=== PATIENT | male | born 1940 | race Caucasian/White ===

== ENCOUNTER 2016-05-13 02:26 | Emergency (ER) | payer MEDICARE, BC ==
[2016-05-13 02:25] LABS: BASOPHIL# 0.1 X10e3 (0-0.3); BASOPHIL% 0.7 % (0-2.5); EOSINOPHIL# 0.4 X10e3 (0-0.7); EOSINOPHIL% 6.1 % (0.0-7.0); HEMATOCRIT 38.4 % (38.0-50.0); HEMOGLOBIN 12.9 gm/dL (13.0-16.0); LYMPHOCYTE# 1.7 X10e3 (1.0-3.5); MEAN CELL VOLUME 95.4 FL (83-96); MEAN CORPUSCULAR HGB CONC 33.6 g/dL (30-36); MEAN PLATELET VOLUME 8.3 FL (6.5-11.5); MONOCYTE# 0.9 X10e3 (0-1.0); MONOCYTE% 12.3 % (3.0-12.0); NEUTROPHIL% 56.9 % (40-75); PLATELET COUNT 185 X10e3 (140-420); RED BLOOD COUNT 4.02 X10e (3.90-5.60); RED CELL DISTRIBUTION WIDTH 14.6 % (11.0-15.5); WHITE BLOOD COUNT 7.1 X10e3 (4.0-10.5)
[2016-05-13 02:26] LABS: DIFF IND NO
[~2016-05-13 02:26] MED LIST: BRILINTA90 MG PO; CIPRO PO; CLEOCIN HCL300 M1 PO; CORDARONE200 M1 PO; DIGOX0.25 MG PO; FLAGYL PO; FLEXERIL PO; FLORASTOR250 M1 PO; LOPRESSOR PO; METOPROLOL TAR25 MG PO; NITROGLYGERIN0.4 MG SL; PRADAXA150 MG PO; TOPROL XL PO; VICODIN 5/500 T1 TAB PO; [UNRECOGNIZED DRUG - OTHER] PO
[2016-05-13 02:54] LABS: ALBUMIN SERUM 3.8 g/dL (3.5-5.0); ALKALINE PHOSPHATASE 63 U/L (32-92); ALT (SGPT) 17 U/L (10-40); AMYLASE 13 U/L (0-46); AST (SGOT) 16 U/L (10-42); BILIRUBIN, DIRECT 0.2 mg/dL (0.0-0.2); BILIRUBIN,INDIRECT 0.8 mg/dL (0.0-0.9); BLOOD UREA NITROGEN 16 mg/dL (9-23); BUN/CREATININE RATIO 13.33; CALCIUM SERUM 8.6 mg/dL (8.4-10.2); CARBON DIOXIDE 23 mmol/L (22-31); CHLORIDE 98 mmol/L (100-111); CREATININE SERUM 1.2 mg/dL (0.6-1.4); GLOM FILT RATE Estimated ABOVE60 mL/min (>60); GLUCOSE FASTING 117 mg/dL (70-110); LIPASE 17 U/L (22-51); POTASSIUM 3.3 mmol/L (3.5-5.1); PROTEIN TOTAL SERUM 7.3 g/dL (6.0-8.3); SODIUM 130 mmol/L (135-145)
== END 2016-05-13 03:30 | disposition home or self-care (01) ==
LOC: CED 02:26
PROVIDERS: Emergency Medicine
DX: R10.13 Epigastric pain (principal); R11.2 Nausea with vomiting, unspecified; I48.91 Unspecified atrial fibrillation; I10 Essential (primary) hypertension; Z88.8 Allergy status to other drugs, medicaments and biological substances; Z79.899 Other long term (current) drug therapy; Z88.0 Allergy status to penicillin; Z91.040 Latex allergy status
CPT/HCPCS: 36415; 80048; 80076; 82150; 83690; 85025; 99284

== ENCOUNTER 2016-05-17 04:45 | Emergency (ER) | payer MEDICARE, BC | END 2016-05-17 04:46 | disposition home or self-care (01) | LOC: CED 04:45 | DX: Z53.21 Procedure and treatment not carried out due to patient leaving prior to being seen by health care provider (principal) ==

== ENCOUNTER 2016-05-22 19:27 | Emergency (ER) | payer MEDICARE, BC | END 2016-05-22 19:30 | disposition left against medical advice (07) | LOC: CED 19:27 | DX: Z53.21 Procedure and treatment not carried out due to patient leaving prior to being seen by health care provider (principal) ==

== ENCOUNTER 2016-05-25 09:24 | Inpatient (IN) | payer MEDICARE, BC ==
--- NOTE | ~2016-05-25 | CR4 ---
[facility] A Service of [facility] & [facility] RADIOLOGY TEXT RESULTS PATIENT: TELLO JORDAN LOCATION: [facility] 301- : 41 UNIT #: [id number] AGE: [address]: Neto Shook MD SEX: M ORDER DR: [id number] [facility]. [place], [place] [address] [id number] I MR#: [id number] Acc #: [id number] NAME: TELLO JORDAN. : 1940 SEX: M STUDY DATE/TIME: 05/30/2016 17:02 UNIT: [facility] ROOM: [facility][note 3] STUDY DESCRIPTION: CR Abdomen Flat Upright or Dec Attending Physician: Neto Shook M.D. Ordering Physician: Neto Shook M.D. Primary Care Physician: Carl Dueñas M.D. MEDICAL IMAGING REPORT This report is preliminary unless electronic signature is present EXAM Supine and upright abdomen. HISTORY No bowel movement for 8 days. Evaluate for ileus. FINDINGS Supine and upright views of the abdomen demonstrate a moderate amount of high-density material within the colon which may represent residual contrast and retained stool. No evidence of ileus or high-grade obstruction. Surgical drains noted in the right quadrant as well as a biliary stent. Lung bases are unremarkable except for some left basilar atelectasis. Dictated by... Elizabeth Stovall M.D. THIS IS AN ELECTRONICALLY VERIFIED REPORT Elizabeth Stovall M.D. at 05/31/2016 10:52 PM MOE/darya TD: 05/31/2016 09:28 JOB #: [id number] MEDICAL IMAGING REPORT Page 1 of 1 COPY
--- NOTE | ~2016-05-25 | CO ---
Unit #: [id number] #: [id number] Patient: TELLO JORDAN [id number] [facility]. [place], [place] [address] [id number] I MR#: [id number] NAME: TELLO JORDAN. ROOM: 301 Age: 75 Sex: M Admission Date: 05/25/2016 : 1940 Attending Physician: Neto Shook M.D. Primary Care Physician: Carl Dueñas M.D. Consultation Date: 05/25/2016 CONSULTATION REPORT REASON FOR CONSULT Cardiovascular management and preoperative clearance. HISTORY OF PRESENT ILLNESS This is a 75-year-old white male, previously known to Dr. Dill. The patient has a history of coronary artery disease. He was admitted to [facility] for unstable angina in 06/2015. He underwent a cardiac catheterization on 06/21/2015, which revealed a 60% to 70% stenosis in the LAD followed by a distal stenosis of 70%. FFR was significant at 0.75. The patient underwent placement of drug-eluting stents x2 in the mid to distal LAD. 2D echocardiogram was previously completed, 02/08/2014, which revealed a left ventricular ejection fraction of 55% to 60%. There were mhjj-qe-qcsdxdmq mitral regurgitation and mild tricuspid regurgitation. Additional past medical history includes hypertension. The patient has reported aspirin allergy, but details are unknown. He was placed on aspirin in 06/2015 after stent placement and had no reactions. He is known to have paroxysmal atrial fibrillation and was started on Pradaxa in 06/2015. However, the patient states that recently over the past couple of weeks, he stopped taking Pradaxa due to reported side affects, which did not include bleeding. He presented to the emergency department with complaints of abdominal pain. The pain has been present for a couple of weeks, but recently became worse and unbearable. The pain is located in the umbilical area and bilateral lower quadrants. It radiates into his back. The pain is worse after meals. It has been severe. There are associated symptoms of nausea and bloating. He denies diarrhea or melena. He has not had a bowel movement for 3 to 4 days. He denies dizziness, palpitations, chest pain, or shortness of breath. There are no reports of syncope or lower extremity edema. He has had some recent chills, but no fever. In the emergency department, his temperature was 97.9, pulse 53, respirations 16, blood pressure 204/71, and O2 saturations 100% on room air. Initial labs revealed a creatinine of 1.5, which is up from previous creatinine of 1.1 to 1.2. LFTs were abnormal. UA revealed trace leukocytes and protein. Right upper quadrant ultrasound revealed cholelithiasis, but no evidence of gallbladder thickening. Dr. Shook was consulted and the patient is scheduled to undergo a HIDA scan and a CT of the abdomen and pelvis. Cardiology was consulted for medical management and preoperative clearance. Of note, the patient has been on aspirin off and on since his stent placement in 06/2015. He has not been compliant with daily use, but states that he has been taking his Brilinta as ordered. His Pradaxa was recently stopped as noted above and he does not want to go back on this medication. He is to consider other Unit #: [id number] #: [id number] Patient: TELLO JORDAN anticoagulants upon discharge for atrial fibrillation. PAST MEDICAL HISTORY 1. Coronary artery disease with unstable angina, status post cardiac catheterization on 06/21/2015 at [facility], which revealed left main normal. Left circumflex with very small obtuse marginal 1 and obtuse marginal 2. Obtuse marginal 3 30%. Right coronary artery with luminal irregularities. Left anterior descending artery 60% to 70% followed by distal 70%. FFR 0.75 with clinical significance. Ramus small, but normal. Ejection fraction 60% to 65%. Status post PCI and drug-eluting stent in the mid to distal left anterior descending artery x2. 2. 2D echocardiogram, 02/08/2014, revealed a left ventricular ejection fraction of 55% to 60%. Moderate LVH. Left atrium mildly dilated. Uvmb-le-usoljebs mitral regurgitation. Mild tricuspid regurgitation. 3. Paroxysmal atrial fibrillation, no longer on Pradaxa due to reported GI side effects. 4. Hypertension. 5. History of previous aspirin allergy. 6. Remote tobacco abuse. PAST SURGICAL HISTORY 1. Cardiac catheterization, PCI, and stents. 2. Right rotator cuff repair. 3. Right knee injection. 4. Right elbow repair. HOME MEDICATIONS List of home medications include metoprolol, Brilinta, nitroglycerin, amiodarone, and senna. ALLERGIES 1. Diclofenac, documented severe. 2. Salicylates. 3. NSAIDs. 4. Penicillin. 5. Aspirin. 6. Latex. SOCIAL HISTORY The patient lives in a private residence. He quit smoking cigarettes 35 years ago, but does report use of cigars on the weekends. He admits to rare alcohol. There are no reports of illicit drug use. The patient exercises at the gym 3 to 5 days per week. FAMILY HISTORY Unchanged from previous consultation. REVIEW OF SYSTEMS 10-point review of systems is negative except for details noted above in HPI. PHYSICAL EXAMINATION VITAL SIGNS: Temperature 97.8, pulse 55, blood pressure 185/80. CONSTITUTIONAL: This is a 75-year-old white male, in no acute distress. SKIN: Warm and dry. NECK: Supple. No jugular vein distention. No hepatojugular reflux. Normal carotid upstrokes. No carotid bruits auscultated. Unit #: [id number] #: [id number] Patient: TELLO JORDAN HEART: S1 and S2. Regular rate and rhythm. No murmurs, rubs, or gallops. LUNGS: Bilateral breath sounds have good air entry throughout all lung logan. Respirations even and nonlabored. No rales, rhonchi, or wheezes. ABDOMEN: Slightly tender, but soft. Positive bowel sounds auscultated x4 quadrants. No ascites noted. EXTREMITIES: Bilateral lower extremities have no pretibial pitting edema. DP and PT pulses are 2+. Capillary refill less than 3 seconds. DIAGNOSTIC STUDIES LABORATORY RESULTS: White blood cell count 6.7, hemoglobin 12.4, hematocrit 37.9, platelets 190. Sodium 137, potassium 3.6, chloride 105, CO2 of 24, BUN 15, creatinine 1.5, glucose 118, AST 158, ALT 204, alkaline phosphatase 267. INR 1.0. Urinalysis with trace leukocyte esterase and protein. IMAGING STUDIES: Right upper quadrant ultrasound revealed cholelithiasis, but no evidence of gallbladder thickening. CARDIOVASCULAR STUDIES: EKG is pending. Telemetry reveals sinus rhythm. IMPRESSION 1. Abdominal pain, rule out cholecystitis. 2. Elevated LFTs. 3. Uncontrolled hypertension. 4. Sinus bradycardia. 5. Acute kidney injury, likely due to dehydration. 6. Coronary artery disease with history of percutaneous coronary intervention and stent in the left anterior descending in 06/2015. 7. Left ventricular ejection fraction of 55% to 60%. 8. Rnrk-jj-wtgoprft mitral regurgitation and mild tricuspid regurgitation. 9. History of paroxysmal atrial fibrillation, currently in sinus rhythm. Not on anticoagulation due to recent side effects from Pradaxa. 10. Remote tobacco abuse. PLAN 1. The patient presented to the hospital with complaints of abdominal pain. Right upper quadrant ultrasound revealed cholelithiasis. HIDA scan and CT of the abdomen and pelvis are pending. 2. Cardiology was consulted for cardiovascular management and preoperative clearance. 3. There is no evidence of congestive heart failure over the course of chest pain on exam. 4. The patient's Brilinta will be discontinued for the time being. He stopped taking Pradaxa as an outpatient. We will need to discuss restarting different anticoagulation prior to discharge due to history of atrial fibrillation. 5. The patient's blood pressure is elevated on exam. He will be continued on metoprolol with the first dose now and he will be started on hydralazine p.r.n. 6. He is okay to undergo surgery at low to moderate, but acceptable risk. Dictated by... Dawn Salinas APRN TR/gabriella Unit #: [id number] #: [id number] Patient: TELLO JORDAN TD: 05/26/2016 03:20 JOB #: [id number] CONSULTATION REPORT Page 1 of 1 X X CONSULTATION REPORT
--- NOTE | ~2016-05-25 | NM22 ---
[facility] A Service of [facility] & [facility] RADIOLOGY TEXT RESULTS PATIENT: TELLO JORDAN LOCATION: [facility] 301- : 41 UNIT #: [id number] AGE: [address]: Neto Shook MD SEX: M ORDER DR: [id number] [facility] [address] [facility]. [place], [place] [address] [id number] I MR#: [id number] Acc #: [id number] NAME: TELLO JORDAN : 1940 SEX: M STUDY DATE/TIME: 05/26/2016 10:34 UNIT: [address] ROOM: [facility] STUDY DESCRIPTION: NM Hepatobiliary W GB Pharm Attending Physician: Neto Shook M.D. Ordering Physician: Neto Shook M.D. Primary Care Physician: Carl Dueñas M.D. MEDICAL IMAGING REPORT This report is preliminary unless electronic signature is present EXAM Hepatobiliary scan 05/26/2016 INDICATION Biliary colic. Nausea. Right upper quadrant pain. Symptoms for about 1 week. Gallstones seen on prior ultrasound. FINDINGS Imaging was obtained of the abdomen for 2 hours after the IV administration of 5.8 mCi of technetium-99m Choletec. Comparison is made with abdomen CT and gallbladder ultrasound from 05/25/2016. There is prompt uptake by the liver. There is some biliary activity and small bowel activity seen within 60-90 minutes. However, definite gallbladder activity is not seen and this is certainly concerning for acute cholecystitis. IMPRESSION Nonvisualization of the gallbladder at 2 hours suspicious for acute cholecystitis. No biliary obstruction is identified. STAT * RESULT Dictated by... Neto Zurita Jr., M.D. THIS IS AN ELECTRONICALLY VERIFIED REPORT Neto Zurita Jr., M.D. at 05/26/2016 4:22 PM EVIE/kalina TD: 05/26/2016 12:54 JOB #: [id number] [facility] A Service of [facility] & [facility] RADIOLOGY TEXT RESULTS PATIENT: TELLO JORDAN LOCATION: [facility] 301-01 : 41 UNIT #: [id number] AGE: [address]: Neto Shook MD SEX: M ORDER DR: MEDICAL IMAGING REPORT Page 1 of 1 COPY
--- NOTE | ~2016-05-25 | CR84 ---
[facility] A Service of [facility] & [facility] RADIOLOGY TEXT RESULTS PATIENT: TELLO JORDAN LOCATION: [facility] 301- : 41 UNIT #: [id number] AGE: [address]: Neto Shook MD SEX: M ORDER DR: [id number] [facility]. [place], [place] [address] [id number] I MR#: [id number] Acc #: [id number] NAME: TELLO JORDAN. : 1940 SEX: M STUDY DATE/TIME: 05/27/2016 8:44 UNIT: [address] ROOM: [facility] STUDY DESCRIPTION: CR ERCP Biliary and Pancr SI Attending Physician: Neto Shook M.D. Ordering Physician: Nabor Robles M.D. Primary Care Physician: Carl Dueñas M.D. MEDICAL IMAGING REPORT This report is preliminary unless electronic signature is present EXAM ERCP interpretation only. HISTORY 75-year-old male with common bile duct stones. FLUOROSCOPY TIME 3.11 minutes. 9 images were submitted. FINDINGS The study demonstrates injection of the common bile duct. Sphincterotomy was performed, and a stent was placed in the common bile duct, as well as balloon sweeping. Please refer to the procedure report for complete details. Dictated by... Anders Stovall M.D. THIS IS AN ELECTRONICALLY VERIFIED REPORT Anders Stovall M.D. at 05/28/2016 8:39 AM RACHEL/debbie TD: 05/27/2016 19:04 JOB #: [id number] MEDICAL IMAGING REPORT Page 1 of 1 COPY
--- NOTE | ~2016-05-25 | DS ---
Unit #: [id number] #: [id number] Patient: TELLO JORDAN [id number] [place], [place] [address] [id number] I MR#: [id number] NAME: TELLO JORDAN. ROOM: [facility] Age: 75 Sex: M Admission Date: 05/25/2016 : 1940 Discharge Date: 06/01/2016 Attending Physician: Neto Shook M.D. Primary Care Physician: Carl Dueñas M.D. DISCHARGE SUMMARY BRIEF SUMMARY The patient is a 75-year-old white male, who was admitted through the emergency room complaining of upper abdominal pain with severe nausea. He was noted to have elevated liver function test. Multiple studies were done including an ultrasound of the gallbladder which revealed somewhat distended gallbladder. He had a CT scan of the abdomen which revealed inflammatory changes on the head of the pancreas and was seen by Dr. Robles in consultation. His physical examination on admission revealed some tenderness in the midepigastrium and right upper quadrant. Admitting laboratory values otherwise except for elevated liver function tests were fairly not remarkable. His amylase and lipase were both normal. HOSPITAL COURSE The patient was seen in consultation by Dr. Robles and underwent ERCP, which revealed some stenosis of the common duct in the area of the pancreatic head. Brushings were done and these were negative, but a CA 19-9 was performed and it was elevated at 75. Following this, the patient underwent laparoscopic cholecystectomy and has done well from that. He is 4 days status post laparoscopic cholecystectomy. He was taken off his anticoagulation and has been seen by Cardiology and cleared for discharge. At present, he is tolerating regular diet. He has had one bowel movement with laxative, ambulating well without any complaints. His abdomen was soft, nontender, and benign. His wounds clean and healing well. The plan will be to discharge the patient home. We will review resuming all his home medications. He will be on [place] 7.5/325 one or two p.o. q.4 to 6 hours p.r.n. pain and be calling the office for followup appointment for in a week. He will be keeping his wounds clean and dry. He will be following up also with Dr. Robles for removal of the stent that was placed during his ERCP. Dictated by... Phu Bull Jr., M.D. JMB/gabriella TD: 06/01/2016 09:41 JOB #: [id number] CC: Nabor Robles M.D. Unit #: [id number] #: [id number] Patient: TELLO JORDAN DISCHARGE SUMMARY Page 1 of 1 X Phu Bull MD X DISCHARGE SUMMARY
--- NOTE | ~2016-05-25 | OR ---
Unit #: [id number] #: [id number] Patient: TELLO JORDAN [id number] [place], [place] [address] [id number] I MR#: [id number] NAME: TELLO JORDAN. ROOM: [facility] Date of Procedure: 05/28/2016 Admission Date: 05/25/2016 Surgeon: Phu Bull Jr., M.D. : 1940 Attending Physician: Neto Shook M.D. Primary Care Physician: Carl Dueñas M.D. OPERATIVE REPORT INDICATIONS FOR PROCEDURE The patient is a 75-year-old white male who was admitted complaining of severe midepigastric and right upper quadrant abdominal pain. He was noted to have some elevation of his liver function tests. ERCP was performed, which revealed some stenosis of the common duct and brushings of this were benign without evidence of obvious malignancy. He was noted to have evidence of multiple gallstones on workup. It was felt he needs a laparoscopic cholecystectomy. HIDA scan was performed, which revealed obstruction of the cystic duct compatible with acute cholecystitis. He is brought to the operating room at this time for laparoscopic cholecystectomy. He understands the procedure including the risks including that of intra-abdominal organ injury, bleeding, biliary leak and common duct injury, and consents. PREOPERATIVE DIAGNOSES Acute cholecystitis with cholelithiasis. Also, benign common duct stenosis. POSTOPERATIVE DIAGNOSES Acute cholecystitis with cholelithiasis. Also, benign common duct stenosis, noting multiple adhesions of the omentum to the gallbladder. ANESTHESIA General with endotracheal intubation and 0.5% Marcaine with epinephrine locally. RADIO ENGINEER Dr. Resendiz. PROCEDURE PERFORMED Laparoscopic lysis of adhesions with laparoscopic cholecystectomy. DESCRIPTION OF PROCEDURE The patient was positioned in supine position. After being anesthetized and intubated, he was prepped and draped in a routine fashion for laparoscopic cholecystectomy. A small supraumbilical incision was made, approximately a cm in length. This was carried down to the fascia. The fascia and the umbilicus were lifted with a towel clip, and a Veress needle introduced into the abdomen. The abdomen was then inflated with CO2 gas. A 5-mm port was introduced into the abdomen followed by the camera. There was no evidence of any injury related to introduction of the port or the Veress needle. Brief intra-abdominal exploration was Unit #: [id number] #: [id number] Patient: TELLO JORDAN carried out. The patient was noted to have moderate amount of gas in the sigmoid colon, but no evidence of any other specific abnormalities and his gallbladder was partially wrapped with adhesions. Two 5-mm ports were placed laterally and an 11-mm port just to the right of the upper midline. The gallbladder was lifted. Multiple adhesions were dissected both by sharp and blunt dissection and the gallbladder freed down to the triangle of Calot. The cystic duct was isolated and hemo-clipped x4 and divided approximately 1 cm from its junction with the common duct. The cystic artery was identified, hemo-clipped x3, and divided. The gallbladder was removed from its bed with the hook cautery using a current of 20 with some slight weeping from the gallbladder bed. After it was removed, it was placed in an EndoCatch bag and brought out through the larger port site and sent to Pathology. The port was replaced. Subhepatic space irrigated and after a small amount of mild bleeding was controlled with the Bovie cautery using a current of 30, the area was again irrigated. Clips on the cystic duct and cystic artery were intact with no evidence of leak or bleeding. There was a small amount of oozing from the adhesions, but no evidence of any significant bleeding. It was felt in view of the oozing that the patient was having and the fact that he had been on blood thinners up until 4 days ago, a Gregg-Wood drain was indicated. A 10-mm Gregg-Wood drain was placed in the subhepatic space and brought out through the lateral port site in a routine fashion and sutured to the skin with a 2-0 silk suture. After hemostasis was noted and all irrigation fluid was removed, the CO2 was expressed from the abdomen. Ports were removed. There was no evidence of any bleeding from the port sites. The port sites were injected with 0.5% Marcaine with epinephrine locally. The fascia in the larger port site was approximated with qflchs-um-chsfg 0 Vicryl suture. The wounds were irrigated, and after adequate hemostasis again achieved with the Bovie cautery, skin edges were approximated with stainless steel skin clips and skin stapling device. Sterile dressings were applied externally. Estimated blood loss was less than 100 mL. The patient received less than 2000 mL crystalloid solution during the procedure. Sponges and instrument counts were correct x3. No drains were used. No complications. The patient was taken to recovery room with stable vital signs in satisfactory condition. Dictated by... Phu Bull Jr., M.D. JMB/gabriella TD: 05/29/2016 05:57 JOB #: [id number] OPERATIVE REPORT Page 1 of 1 X Phu Bull MD X PROCEDURE OPERATIVE NOTE
--- NOTE | ~2016-05-25 | EKG ---
PATIENT: TELLO JORDAN UNIT #: [id number] Ventricular Rate: 55 BPM Atrial Rate: 55 BPM P-R Interval: 228 ms QRS Duration: 148 ms Q-T Interval: 496 ms QTC Calculation(Bezet): 474 ms P [place]: 85 degrees Calculated R [place]: 6 degrees Calculated T [place]: 15 degrees Diagnosis Line: Sinus bradycardia with 1st degree A-V block Diagnosis Line: Right bundle branch block Diagnosis Line: Abnormal ECG Diagnosis Line: When compared with ECG of 26-MAY-2016 06:07, Diagnosis Line: No significant change was found Diagnosis Line: Confirmed by MOISES DARLING MD ([id number]) on 05/31/2016 Diagnosis Line: 7:19:40 AM INTERPRETING MD: LISSET PHELPS
--- NOTE | ~2016-05-25 | CT4 ---
[facility] A Service of [facility] & [facility] RADIOLOGY TEXT RESULTS PATIENT: TELLO JORDAN LOCATION: [facility] 301- : 41 UNIT #: [id number] AGE: [address]: Neto Shook MD SEX: M ORDER DR: [id number] [facility] [address] [facility]. [place], [place] [address] [id number] I MR#: [id number] #: [id number] NAME: TELLO JORDAN. : 1940 SEX: M STUDY DATE/TIME: 05/25/2016 17:56 UNIT: A U ROOM: [facility] [place] STUDY DESCRIPTION: CT Abd and Pelv Wo Cont Attending Physician: Neto Shook M.D. Ordering Physician: Zaid Resendiz M.D. Primary Care Physician: Carl Dueñas M.D. MEDICAL IMAGING REPORT This report is preliminary unless electronic signature is present EXAM CT abdomen and pelvis, 05/25 INDICATION Constipation and low back pain for 1 week. Patient extremely nauseated this evening. TECHNIQUE Axial images were obtained through the abdomen and pelvis following IV contrast administration. Multiplanar reformats were obtained. This CT exam was performed with one or more of the following radiation dose reduction techniques: automatic exposure control, adjustment of mA and/or kV according to patient size, and iterative reconstruction. COMPARISON Comparison made with chest CT from 06/20/2015. There is no comparison abdomen or pelvis CT. FINDINGS ABDOMEN: Tiny subpleural nodules in the lower lobes are likely benign in the absence of known malignancy. There is a fat-containing right side Bochdalek hernia. The gallbladder is hydropic with a short-axis diameter of 5.6 cm. It is otherwise unremarkable. There is some fat stranding around the head and uncinate process of the pancreas as well as around the adjacent second portion of the duodenum. This is probably secondary to acute pancreatitis rather than duodenitis. Correlate with laboratory data. No renal or ureteral stones are seen and there is no hydronephrosis. Solid organs are otherwise unremarkable. The remainder of the GI tract is normal. PELVIS: The bladder is normal. There are no lower ureteral stones. There is no free fluid. 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 IMPRESSION 1. Hydropic but otherwise normal-appearing gallbladder. 2. Fat stranding around the head and uncinate process of the pancreas is likely due to acute pancreatitis. This fat stranding is seen adjacent to the second portion of the duodenum as well. Correlate with laboratory data to exclude any evidence of duodenitis. No fluid collections are identified. 3. Remainder of the GI tract is within normal limits. 4. No renal or ureteral stones. No hydronephrosis. Dictated by... Neto Zurita Jr., M.D. THIS IS AN ELECTRONICALLY VERIFIED REPORT Neto Zurita Jr., M.D. at 05/26/2016 10:07 AM EVIE/yoandy TD: 05/26/2016 09:06 JOB #: [id number] MEDICAL IMAGING REPORT Page 1 of 1 COPY
--- NOTE | ~2016-05-25 | CO ---
Unit #: [id number] #: [id number] Patient: TELLO MEEK [id number] [address] [place], [place] [address] [id number] I MR#: [id number] NAME: TELLO MEEK. ROOM: 301 Age: 75 Sex: M Admission Date: 05/25/2016 : 1940 Attending Physician: Neto Shook M.D. Primary Care Physician: Carl Dueñas M.D. Consultation Date: 05/27/2016 CONSULTATION REPORT REASON FOR CONSULTATION Assess the patient with abnormal LFTs and biliary pain for possible ERCP. HISTORY OF PRESENT ILLNESS Mr. Meek is a pleasant 75-year-old white gentleman. For the past 4 to 6 weeks, he has been having abdominal pain, primarily felt in the epigastric area in the right upper quadrant of the abdomen. The pain does not radiate to the back or to the right shoulder. It has been severe enough for him to seek medical attention, although, he has had slighter pain of lesser intensity for the past few weeks preceding the onset of these symptoms. PAST MEDICAL HISTORY Significant for history of paroxysmal atrial fibrillation, hypertension, moderate left ventricular hypertrophy with mitral regurgitation, and tricuspid regurgitation. He also has history of coronary artery disease with an LV ejection fraction of 60%. MEDICATIONS At home included metoprolol, Brilinta, nitroglycerin, Cordarone, recently was on Pradaxa which was stopped about a week ago. ALLERGIES Include Voltaren, salicylates, penicillin, and aspirin. PAST SURGICAL HISTORY Included right rotator cuff surgery, right knee surgery, right elbow repair. The patient has had no prior abdominal surgeries. SOCIAL HISTORY He does smoke and drinks occasionally. REVIEW OF SYSTEMS Detailed review of organ system does not reveal any recent weight loss. No history of fever, chills, or rigors. No history of headache, seizures, chest pain, or syncope. No history of cough, expectoration, or hemoptysis. No history of dysuria, hematuria, or pyuria. No history of focal seizures or extremity weakness. FAMILY HISTORY None of colon, pancreatic cancer, or liver disease. PHYSICAL EXAMINATION GENERAL: He is alert and oriented, and appears comfortable. Unit #: [id number] #: [id number] Patient: TELLO MEEK VITAL SIGNS: Stable with a temperature of 97.5, pulse is 59 per minute and regular, respiratory rate is 18, and blood pressure is 162/72. He appears overweight and he weighs 264 pounds. HEENT: He has no pallor, icterus, lymphadenopathy, or peripheral edema. CARDIOVASCULAR: Normal heart sounds. No murmurs on auscultation. LUNGS: Normal breath sounds. Good air entry. ABDOMEN: Soft and nontender. Liver and spleen are not palpable. Bowel sounds normal. DIAGNOSTIC STUDIES LABORATORY RESULTS: Shows a white count of 4.1, hemoglobin on admission was 11.5, red cell indices are normochromic and normocytic, platelet count is 190. INR is 1.0. Serum chemistry shows a BUN and creatinine of 13 and 1.1. Electrolytes are normal. Albumin is 3.1 with a declining trend. Bilirubin which was 0.6 as a baseline, is now 5.1. Peak AST and ALT are 158 and 204 respectively and alkaline phosphatase 267. Amylase and lipase are normal. IMAGING STUDIES: The patient had an ultrasound and CAT scan of the abdomen that shows hydropic gallbladder with cholelithiasis. The common bile duct was at the upper limit are normal about 8 mm. On a CAT scan, the patient has hydropic, but normal appearing gallbladder. The patient does have some stranding around the duodenum and pancreatic head. HIDA scan does not show any opacification of the gallbladder. CLINICAL IMPRESSION The possibilities here include that of common bile duct stone and especially in the distal common bile duct which is not clearly visible on imaging studies. The proximal common bile duct is upper limit of normal. With abnormalities in the liver test and bilirubin, it will be prudent to proceed with an endoscopic retrograde cholangiopancreatography to define the anatomy of the distal biliary tree before proceeding with laparoscopic cholecystectomy. The above plan discussed with the patient and he was reassured. Thank you for asking me to see this pleasant gentleman. I appreciate the consult. Dictated by... Gala Steen/gabriella TD: 05/28/2016 23:55 JOB #: [id number] Ramiro Diaz III, M.D. CONSULTATION REPORT Page 1 of 1 X Nabor Robles MD CONSULTATION REPORT
--- NOTE | ~2016-05-25 | US67 ---
[facility] A Service [facility] RADIOLOGY TEXT RESULTS PATIENT: TELLO JORDAN LOCATION: [facility] 301-01 : 41 UNIT #: [id number] AGE: [address]: Neto Shook MD SEX: M ORDER DR: [id number] [id number] [place], [place] [address] [id number] E MR#: [id number] Acc #: [id number] NAME: TELLO JORDAN : 1940 SEX: M STUDY DATE/TIME: 05/25/2016 10:25 UNIT: [facility] ROOM: STUDY DESCRIPTION: Gallbladder Attending Physician: Neto Zhang M.D. Ordering Physician: Neto Zhang M.D. Primary Care Physician: Carl Dueñas M.D. MEDICAL IMAGING REPORT This report is preliminary unless electronic signature is present EXAM Right upper quadrant abdominal ultrasound INDICATION Generalized abdominal pain for the past 3 weeks. PROCEDURE Bose-scale and Doppler imaging right upper quadrant of the abdomen. COMPARISON None FINDINGS Pancreas obscured by bowel gas and not seen. Liver measures 14.7 cm. No liver mass on submitted images. Cholelithiasis. No gallbladder wall thickening or pericholecystic fluid. Right kidney measures 11.7 cm. No hydronephrosis. The common duct measures 8.0 mm. IMPRESSION 1. Cholelithiasis. No evidence for acute cholecystitis. 2. Common duct upper limits of normal for the patient's age. 3. Pancreas obscured and not seen. Dictated by... Evaristo Caballero M.D. THIS IS AN ELECTRONICALLY VERIFIED REPORT Evaristo Caballero M.D. at 05/26/2016 10:02 AM Ubaldo TD: 05/25/2016 14:30 JOB #: [id number] [facility] A Service [facility] RADIOLOGY TEXT RESULTS PATIENT: TELLO JORDAN LOCATION: [facility] 301- : 41 UNIT #: [id number] AGE: [address]: Neto Shook MD SEX: M ORDER DR: MEDICAL IMAGING REPORT Page 1 of 1 COPY
--- NOTE | ~2016-05-25 | EKG ---
PATIENT: TELLO JORDAN UNIT #: [id number] Ventricular Rate: 56 BPM Atrial Rate: 56 BPM P-R Interval: 264 ms QRS Duration: 146 ms Q-T Interval: 524 ms QTC Calculation(Bezet): 505 ms P [place]: 100 degrees Calculated R [place]: 12 degrees Calculated T [place]: 13 degrees Diagnosis Line: Sinus bradycardia with 1st degree A-V block Diagnosis Line: Right bundle branch block Diagnosis Line: Abnormal ECG Diagnosis Line: When compared with ECG of 22-JUN-2015 07:11, Diagnosis Line: QT has lengthened Diagnosis Line: Confirmed by MOISES DARLING MD ([id number]) on 05/29/2016 Diagnosis Line: 7:32:35 AM INTERPRETING MD: LISSET PHELPS
--- NOTE | ~2016-05-25 | OR ---
Unit #: [id number] #: [id number] Patient: TELLO JORDAN [id number] [address] [place], [place] [address] [id number] I MR#: [id number] NAME: TELLO JORDAN. ROOM: [facility] Date of Procedure: 05/27/2016 Admission Date: 05/25/2016 Surgeon: Nabor Robles M.D. : 1940 Attending Physician: Neto Shook M.D. Primary Care Physician: Carl Dueñas M.D. OPERATIVE REPORT PRIMARY CARE PHYSICIAN Carl Dueñas M.D. PREOPERATIVE DIAGNOSES The patient has presented with history of biliary pain and abnormal LFTs. CAT scan shows possibility of pancreatitis. PROCEDURE PERFORMED 1. Endoscopic retrograde cholangiopancreatography and brushings. 2. Endoscopic retrograde cholangiopancreatography and biliary stent placement. 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 This extended for about 3 cm. Proximally, the common bile duct was dilated about 10 mm. After a sphincterotomy, the stricture was dilated using a dilating balloon. Thereafter, the common bile duct was swept with a retrieval balloon; however, no debris or stones were present or delivered. A 10-Moldovan 7 cm biliary stent was then deployed. Incidentally, the cystic duct could not be demonstrated on occlusion cholangiogram. RECOMMENDATIONS The differential diagnosis here includes chronic pancreatitis versus pancreatic cancer rather than stone disease. We will obtain the patient's CBC, CMP, amylase, lipase as well as CA-19-9 in the morning labs. The above findings will communicate with Dr. Diaz. SEDATION USED MAC. DESCRIPTION OF PROCEDURE Following detailed explanation of potential risks and complications of an upper endoscopy and ERCP namely perforation, bleeding, and complications related to sedation and pancreatitis, the patient was brought to GI lab and laid in the left semiprone position. Sedation using MAC was given. A preliminary upper endoscopy was performed, which was normal. A lateral viewing duodenoscope was then advanced through the oral cavity into the esophagus and advanced into the stomach. Pylorus was intubated in usual fashion. The scope was advanced in deep descending duodenum. Upon shortening the scope, major papilla and ampullary area was visualized en face. Through the ampullary orifice, the common bile duct was then Unit #: [id number] #: [id number] Patient: TELLO JORDAN cannulated using guidewire based technique. Contrast cholangiogram was obtained that shows presence of a classic stricture in the intrapancreatic part of common bile duct. This was about 3 cm long. Proximally, the common bile duct was dilated about 10 mm. We then proceeded with a sphincterotomy and dilation. All the stricture was done using a 6 mm x 4 cm dilating balloon. Copious amounts of inspissated bile were delivered through after dilation into the duodenum. We then obtained brushings from the stricture that was dilated. A retrieval balloon was then used and at settings of 9 mm, 10 mm, and 11 mm, common bile duct was swept with multiple times. No stones or debris were delivered or present. A 10-Moldovan 7 cm biliary stent was then deployed achieving excellent drainage. The scope and the accessories were then withdrawn. The patient returned to the recovery area. He tolerated the procedure without any postprocedure complications. Dictated by... Gala Steen/gabriella TD: 05/28/2016 08:11 JOB #: [id number] OPERATIVE REPORT Page 1 of 1 X Nabor Robles MD X PROCEDURE OPERATIVE NOTE
--- NOTE | ~2016-05-25 | CO ---
Unit #: [id number] #: [id number] Patient: TELLO MEEK [id number] [address] [place], [place] [address] [id number] I MR#: [id number] NAME: TELLO MEEK. ROOM: 301 Age: 75 Sex: M Admission Date: 05/25/2016 : 1940 Attending Physician: Neto Shook M.D. Primary Care Physician: Carl Dueñas M.D. Consultation Date: 05/25/2016 CONSULTATION REPORT REASON FOR CONSULTATION 1. Upper abdominal pain. 2. Cholelithiasis. CONSULTING PHYSICIAN [facility] Emergency Room physician. HISTORY OF PRESENT ILLNESS Thank you very much for asking us to see Mr. Meek. He is a 75-year-old white male, who has a past medical history that is negative for any abdominal surgery, but has had a cardiac stent approximately a year ago. He developed mid back pain 3 to 4 weeks ago. He was evaluated in the emergency room and had negative thoracic and lumbar spine x-rays. He subsequently developed in the last 2 to 3 weeks epigastric and right upper quadrant pain and pressure. It radiates to the back. It is a deep pressure sensation. It has waxed and waned, but has now worsened. He has had no GI bleeding. No or pulmonary symptoms. He has had no jaundice. He came to the emergency room for further evaluation. He was found to have some elevation of his liver function studies. An ultrasound was obtained, which revealed cholelithiasis, but no evidence of cholecystitis. He presents at this time for further evaluation and treatment. ALLERGIES Voltaren, salicylates, penicillin, and aspirin. MEDICATIONS Metoprolol tartrate, Brilinta, nitroglycerin, Cordarone. He has recently stopped his Pradaxa 5 to 6 days ago. PAST SURGICAL HISTORY Right rotator cuff, right knee surgery, right elbow repair, no abdominal surgeries. PAST MEDICAL HISTORY Atrial fibrillation, hypertension. SOCIAL HISTORY Positive for tobacco use and alcohol use. REVIEW OF SYSTEMS Negative except for above. IMMUNIZATION STATUS Unknown. Unit #: [id number] #: [id number] Patient: TELLO MEEK FAMILY HISTORY Noncontributory. PHYSICAL EXAMINATION GENERAL: Well-developed, well-nourished white male, in no apparent distress. VITAL SIGNS: Afebrile. Vital signs stable. NECK: Supple. No thyromegaly or adenopathy. BACK: No CVA or spinous tenderness. ABDOMEN: Flat, soft, tender in the right upper quadrant and epigastric area that is moderate in intensity, but no rebound, peritoneal signs, or masses. He has a lower abdominal pain and discomfort as well. DIAGNOSTIC STUDIES LABORATORY RESULTS: Reveal the patient to have normal electrolytes above a total bilirubin of 1.7, direct bilirubin 0.8, AST 158, ALT 204, alkaline phosphatase 267. White count 6.7, hemoglobin 12.4, hematocrit 37.9. Urinalysis, trace leukocyte esterase, negative nitrites. IMPRESSION A 75-year-old white male with right upper quadrant epigastric pain, discomfort, and cholelithiasis. Since he has no evidence of cholecystitis and has some lower abdominal tenderness as well, he should have a CT scan of the abdomen and pelvis with oral and IV contrast for further evaluation. If no other etiologies found, he would most likely require laparoscopic cholecystectomy after cardiac evaluation. We discussed the treatment plan with the patient. He understands and requests to proceed with. Dictated by... Gala Santana/gabriella TD: 05/26/2016 04:01 JOB #: [id number] CC: [facility] CONSULTATION REPORT Page 1 of 1 X Zaid Resendiz MD X CONSULTATION REPORT
[2016-05-25 10:00] LABS: URINE SOURCE CLEAN CATCH
[2016-05-25 10:04] LABS: URINE APPEARANCE CLEAR; URINE BILIRUBIN NEG (NEG); URINE BLOOD NEG (NEG); URINE COLOR DK YELLOW; URINE GLUCOSE NEG (NEG); URINE KETONE NEG (NEG); URINE LEUKOCYTE ESTERASE TRACE (NEG); URINE NITRATE NEG (NEG); URINE PROTEIN TRACE (NEG); URINE SPECIFIC GRAVITY 1.019 (1.003-1.035)
[2016-05-25 10:05] LABS: BASOPHIL% 0.5 % (0-2.5); DIFF IND NO; EOSINOPHIL# 0.3 X10e3 (0-0.7); EOSINOPHIL% 4.7 % (0.0-7.0); HEMATOCRIT 37.9 % (38.0-50.0); HEMOGLOBIN 12.4 gm/dL (13.0-16.0); LYMPHOCYTE# 1.5 X10e3 (1.0-3.5); MEAN CORPUSCULAR HEMOGLOBIN 31.7 PG (28-34); MEAN CORPUSCULAR HGB CONC 32.7 g/dL (30-36); MEAN PLATELET VOLUME 8.6 FL (6.5-11.5); MONOCYTE# 0.9 X10e3 (0-1.0); MONOCYTE% 12.8 % (3.0-12.0); PLATELET COUNT 190 X10e3 (140-420); RED CELL DISTRIBUTION WIDTH 15.5 % (11.0-15.5); WHITE BLOOD COUNT 6.7 X10e3 (4.0-10.5)
[2016-05-25 10:05] LABS: URINE BACTERIA AUWI NEG (NEGATIVE); URINE SQUAMOUS EPITHELIAL CELL NONE SEEN /[HPF]; UWBCS1 AUWI 0-2 (0-5)
[2016-05-25 10:24] LABS: PROTHROMBIN TIME (PATIENT) 10.6 SECONDS (9.6-11.5)
[2016-05-25 10:52] LABS: ALBUMIN SERUM 3.6 g/dL (3.5-5.0); BILIRUBIN, DIRECT 0.8 mg/dL (0.0-0.2); BILIRUBIN,INDIRECT 0.9 mg/dL (0.0-0.9); BILIRUBIN,TOTAL 1.7 mg/dL (0.2-2.0); CALCIUM SERUM 9.4 mg/dL (8.4-10.2); CREATININE SERUM 1.5 mg/dL (0.6-1.4); GLOM FILT RATE Estimated 48.6 mL/min (>60); POTASSIUM 3.6 mmol/L (3.5-5.1); PROTEIN TOTAL SERUM 6.8 g/dL (6.0-8.3)
[2016-05-25 18:45] LABS: %MB 3.1 % (0.0-4.0); MB 2.1 ng/ml
[2016-05-25] MEDS ORDERED: LOPRESSOR PO (22:59)
[2016-05-26 00:45] LABS: MB 2.5 ng/ml
[2016-05-26 06:05] LABS: HEMATOCRIT 34.8 % (38.0-50.0); HEMOGLOBIN 11.5 gm/dL (13.0-16.0); MEAN CELL VOLUME 96.4 FL (83-96); MEAN CORPUSCULAR HEMOGLOBIN 31.8 PG (28-34); MEAN PLATELET VOLUME 8.3 FL (6.5-11.5); RED BLOOD COUNT 3.61 X10e (3.90-5.60); WHITE BLOOD COUNT 4.1 X10e3 (4.0-10.5)
[2016-05-26 06:54] LABS: BILIRUBIN, DIRECT 1.9 mg/dL (0.0-0.2); BLOOD UREA NITROGEN 13 mg/dL (9-23); BUN/CREATININE RATIO 11.81; CALCIUM SERUM 8.8 mg/dL (8.4-10.2); CARBON DIOXIDE 26 mmol/L (22-31); CHLORIDE 105 mmol/L (100-111); CREATININE SERUM 1.1 mg/dL (0.6-1.4); GLOM FILT RATE Estimated ABOVE60 mL/min (>60); GLUCOSE FASTING 111 mg/dL (70-110); MAGNESIUM 2.1 mg/dL (1.6-3.0); PHOSPHOROUS 3.3 mg/dL (2.5-4.6); POTASSIUM 3.8 mmol/L (3.5-5.1); SODIUM 139 mmol/L (135-145)
[2016-05-26 07:11] LABS: AMYLASE 10 U/L (0-46); LIPASE 11 U/L (22-51)
[2016-05-27 08:02] LABS: ALBUMIN SERUM 3.1 g/dL (3.5-5.0); ALKALINE PHOSPHATASE 325 U/L (32-92); ALT (SGPT) 197 U/L (10-40); AMYLASE 8 U/L (0-46); AST (SGOT) 139 U/L (10-42); BILIRUBIN, DIRECT 3.4 mg/dL (0.0-0.2); BILIRUBIN,TOTAL 5.1 mg/dL (0.2-2.0); BLOOD UREA NITROGEN 10 mg/dL (9-23); BUN/CREATININE RATIO 11.11; CALCIUM SERUM 8.6 mg/dL (8.4-10.2); CARBON DIOXIDE 24 mmol/L (22-31); CHLORIDE 105 mmol/L (100-111); CREATININE SERUM 0.9 mg/dL (0.6-1.4); GLOM FILT RATE Estimated ABOVE60 mL/min (>60); GLUCOSE FASTING 114 mg/dL (70-110); LIPASE 11 U/L (22-51); POTASSIUM 3.7 mmol/L (3.5-5.1); PROTEIN TOTAL SERUM 6.4 g/dL (6.0-8.3); SODIUM 136 mmol/L (135-145)
[2016-05-28 05:45] LABS: BASOPHIL% 0.1 % (0-2.5); HEMATOCRIT 34.5 % (38.0-50.0); HEMOGLOBIN 11.4 gm/dL (13.0-16.0); LYMPHOCYTE# 0.8 X10e3 (1.0-3.5); LYMPHOCYTE% 9.4 % (17.0-45.0); MEAN CELL VOLUME 97.5 FL (83-96); MEAN CORPUSCULAR HEMOGLOBIN 32.1 PG (28-34); MEAN CORPUSCULAR HGB CONC 32.9 g/dL (30-36); MEAN PLATELET VOLUME 8.5 FL (6.5-11.5); MONOCYTE# 0.7 X10e3 (0-1.0); MONOCYTE% 8.3 % (3.0-12.0); NEUTROPHIL# 6.9 X10e3 (1.5-7.1); NEUTROPHIL% 82.2 % (40-75); PLATELET COUNT 172 X10e3 (140-420); RED BLOOD COUNT 3.54 X10e (3.90-5.60); RED CELL DISTRIBUTION WIDTH 15.8 % (11.0-15.5)
[2016-05-28 05:50] LABS: DIFF IND NO; WHITE BLOOD COUNT 8.4 X10e3 (4.0-10.5)
[2016-05-28 06:41] LABS: ALBUMIN SERUM 3.1 g/dL (3.5-5.0); ALKALINE PHOSPHATASE 293 U/L (32-92); ALT (SGPT) 184 U/L (10-40); AMYLASE 13 U/L (0-46); AST (SGOT) 107 U/L (10-42); BILIRUBIN,TOTAL 1.4 mg/dL (0.2-2.0); BLOOD UREA NITROGEN 13 mg/dL (9-23); CALCIUM SERUM 8.8 mg/dL (8.4-10.2); CARBON DIOXIDE 25 mmol/L (22-31); CHLORIDE 102 mmol/L (100-111); GLOM FILT RATE Estimated ABOVE60 mL/min (>60); GLUCOSE FASTING 134 mg/dL (70-110); LIPASE 13 U/L (22-51); POTASSIUM 3.9 mmol/L (3.5-5.1); PROTEIN TOTAL SERUM 6.3 g/dL (6.0-8.3); SODIUM 135 mmol/L (135-145)
[2016-05-28 12:01] LABS: HEMATOCRIT 33.8 % (38.0-50.0); HEMOGLOBIN 11.1 gm/dL (13.0-16.0)
[2016-05-28 15:45] LABS: HEMATOCRIT 37.4 % (38.0-50.0); HEMOGLOBIN 11.5 gm/dL (13.0-16.0)
[2016-05-28 20:18] LABS: HEMATOCRIT 33.1 % (38.0-50.0); HEMOGLOBIN 10.7 gm/dL (13.0-16.0)
[2016-05-29 00:05] LABS: HEMATOCRIT 33.2 % (38.0-50.0); HEMOGLOBIN 10.8 gm/dL (13.0-16.0)
[2016-05-29 02:49] LABS: HEMATOCRIT 32.3 % (38.0-50.0); HEMOGLOBIN 10.5 gm/dL (13.0-16.0); MEAN CELL VOLUME 97.8 FL (83-96); MEAN CORPUSCULAR HEMOGLOBIN 31.7 PG (28-34); MEAN CORPUSCULAR HGB CONC 32.4 g/dL (30-36); MEAN PLATELET VOLUME 8.2 FL (6.5-11.5); RED BLOOD COUNT 3.3 X10e (3.90-5.60); RED CELL DISTRIBUTION WIDTH 16.2 % (11.0-15.5)
[2016-05-29 02:51] LABS: WHITE BLOOD COUNT 13.3 X10e3 (4.0-10.5)
[2016-05-29 03:14] LABS: ALBUMIN SERUM 2.9 g/dL (3.5-5.0); BILIRUBIN,TOTAL 1.6 mg/dL (0.2-2.0); BUN/CREATININE RATIO 14.16; CALCIUM SERUM 8.3 mg/dL (8.4-10.2); CREATININE SERUM 1.2 mg/dL (0.6-1.4); GLOM FILT RATE Estimated 59.2 mL/min (>60); POTASSIUM 3.8 mmol/L (3.5-5.1); PROTEIN TOTAL SERUM 5.9 g/dL (6.0-8.3)
[2016-05-29 08:12] LABS: HEMATOCRIT 31.4 % (38.0-50.0); HEMOGLOBIN 10.2 gm/dL (13.0-16.0)
[2016-05-29 12:50] LABS: HEMATOCRIT 31.3 % (38.0-50.0); HEMOGLOBIN 10.2 gm/dL (13.0-16.0)
[2016-05-30 05:26] LABS: HEMATOCRIT 32.4 % (38.0-50.0); HEMOGLOBIN 10.5 gm/dL (13.0-16.0); MEAN CELL VOLUME 98.2 FL (83-96); MEAN CORPUSCULAR HEMOGLOBIN 31.9 PG (28-34); MEAN CORPUSCULAR HGB CONC 32.4 g/dL (30-36); MEAN PLATELET VOLUME 9.1 FL (6.5-11.5); RED BLOOD COUNT 3.3 X10e (3.90-5.60); RED CELL DISTRIBUTION WIDTH 15.8 % (11.0-15.5); WHITE BLOOD COUNT 11.4 X10e3 (4.0-10.5)
[2016-05-30 06:04] LABS: ALBUMIN SERUM 2.9 g/dL (3.5-5.0); BILIRUBIN, DIRECT 0.6 mg/dL (0.0-0.2); BILIRUBIN,TOTAL 1.6 mg/dL (0.2-2.0); BUN/CREATININE RATIO 16.66; CALCIUM SERUM 8.4 mg/dL (8.4-10.2); CREATININE SERUM 0.9 mg/dL (0.6-1.4); GLOM FILT RATE Estimated 83.8 mL/min (>60); POTASSIUM 3.8 mmol/L (3.5-5.1); PROTEIN TOTAL SERUM 6.1 g/dL (6.0-8.3)
[2016-05-31 05:15] LABS: HEMATOCRIT 32.4 % (38.0-50.0); HEMOGLOBIN 10.6 gm/dL (13.0-16.0); MEAN CORPUSCULAR HGB CONC 32.6 g/dL (30-36); MEAN PLATELET VOLUME 8.7 FL (6.5-11.5); RED BLOOD COUNT 3.31 X10e (3.90-5.60); RED CELL DISTRIBUTION WIDTH 15.6 % (11.0-15.5); WHITE BLOOD COUNT 11.3 X10e3 (4.0-10.5)
[2016-05-31 05:57] LABS: ALBUMIN SERUM 2.6 g/dL (3.5-5.0); BILIRUBIN,TOTAL 1.4 mg/dL (0.2-2.0); BUN/CREATININE RATIO 12.22; CREATININE SERUM 0.9 mg/dL (0.6-1.4); GLOM FILT RATE Estimated 83.8 mL/min (>60); POTASSIUM 3.7 mmol/L (3.5-5.1); PROTEIN TOTAL SERUM 5.4 g/dL (6.0-8.3)
[2016-06-01] MEDS ORDERED: HYDROCODON-ACE1 EAC9 PO (06:17)
== END 2016-06-01 08:15 | disposition home or self-care (01) | DRG 418 ==
LOC: CED 09:24 → CEDOF 14:23 → C3A PCU 21:43
PROVIDERS: Emergency Medicine; Internal Medicine Cardiovascular Disease; Internal Medicine Gastroenterology; Specialist; Surgery
PROC: 0F798DZ Dilation of Common Bile Duct with Intraluminal Device, Via Natural or Artificial Opening Endoscopic (ICD-10-PCS; 2016-05-27 09:21)
PROC: 0FB98ZX Excision of Common Bile Duct, Via Natural or Artificial Opening Endoscopic, Diagnostic (ICD-10-PCS; 2016-05-27 09:21)
PROC: 0FT44ZZ Resection of Gallbladder, Percutaneous Endoscopic Approach (ICD-10-PCS; principal; 2016-05-28 12:00)
DX: K80.01 Calculus of gallbladder with acute cholecystitis with obstruction (principal); N17.9 Acute kidney failure, unspecified; I48.0 Paroxysmal atrial fibrillation; K82.1 Hydrops of gallbladder; I08.1 Rheumatic disorders of both mitral and tricuspid valves; R00.1 Bradycardia, unspecified; I10 Essential (primary) hypertension; E86.0 Dehydration; I25.10 Atherosclerotic heart disease of native coronary artery without angina pectoris; Z95.5 Presence of coronary angioplasty implant and graft; Z88.0 Allergy status to penicillin; Z91.040 Latex allergy status; F17.210 Nicotine dependence, cigarettes, uncomplicated
CPT/HCPCS: 36415; 74020; 74176; 74330; 76705; 78227; 80048; 80053; 80076; 81003; 82150; 82248; 82550; 82553; 83690; 83735; 84100; 84484; 85014; 85018; 85025; 85027; 85610; 85730; 86301; 88104; 88304; 93005; 94010; 96361; 96374; 96375; 96376; 99285; A9537; J0330; J0360; J1100; J1170; J1610; J1650; J2250; J2270; J2405; J2710; J3010

== ENCOUNTER 2016-06-03 22:14 | Inpatient (IN) | payer MEDICARE, BC ==
--- NOTE | ~2016-06-03 | DS ---
Unit #: [id number] #: [id number] Patient: TELLO JORDAN [id number] [address] [place], [place] [address] [id number] I MR#: [id number] NAME: TELLO JORDAN. ROOM: 310 Age: 75 Sex: M Admission Date: 06/03/2016 : 1940 Discharge Date: 06/08/2016 Attending Physician: Ramiro Diaz III, M.D. Primary Care Physician: Carl Dueñas M.D. DISCHARGE SUMMARY PRINCIPAL DIAGNOSES 1. Abdominal pain. 2. Pulmonary nodules. OPERATIONS AND PROCEDURES CT scan of abdomen and pelvis and chest. CONSULTANTS Dr. Stewart, Cardiology. Dr. Beto Nieves, Pulmonary Medicine. DISCHARGE INSTRUCTIONS Follow up with Dr. Bull in 1 to 2 weeks' time. May shower. July drive. Normal activity. Normal diet. No prescription was given. CONDITION ON DISCHARGE Satisfactory. CHIEF COMPLAINT AND HISTORY OF PRESENT ILLNESS The patient is a 75-year-old white male who was admitted 7-day status post ERCP and stent placement for distal common bile duct stricture and laparoscopic cholecystectomy. He had been having worsening abdominal pain and nausea and vomiting. He had a CT scan performed as an outpatient, which revealed some ileus and multiple new pulmonary nodules. He was admitted for further evaluation and treatment. For complete History and Physical, please refer to the chart. HOSPITAL COURSE The patient was admitted and was placed on IV fluids as well as IV antibiotics. He was seen by Pulmonary Medicine who felt they were noncancerous pulmonary nodules and after evaluation, felt that he needed a repeat CT scan in a year and we will follow up with him in 3 to 4 months' time. This patient was first seen by Dr. Stewart of Cardiology, who felt he had resumed well from a cardiac standpoint. He improved in terms of his diet and was discharged home in satisfactory condition on 06/08/2016 with all instructions given. Dictated by... Gala Santana/gabriella TD: 06/08/2016 07:30 Unit #: [id number] #: [id number] Patient: TELLO JORDAN JOB #: [id number] CC: Gala Fraire M.D. [facility] DISCHARGE SUMMARY Page 1 of 1 X Zaid Resendiz MD DISCHARGE SUMMARY
--- NOTE | ~2016-06-03 | CO ---
Unit #: [id number] #: [id number] Patient: TELLO JORDAN [id number] [address] [place], [place] [address] [id number] I MR#: [id number] NAME: TELLO JORDAN. ROOM: 310 Age: 75 Sex: M Admission Date: 06/03/2016 : 1940 Attending Physician: Ramiro Diaz III, M.D. Primary Care Physician: Carl Dueñas M.D. CONSULTATION REPORT HISTORY OF PRESENT ILLNESS The patient is a 74-year-old white male who underwent laparoscopic cholecystectomy and biliary stent placement last week. He came in with abdominal pain. On the abdominal and pelvic CT scan, on the lung imaging, it revealed new pulmonary nodules. We are asked to see. He does have a history of smoking cigars. He quit smoking cigarettes more than 35 years ago. He only rarely smokes a cigar. He has no known lung issues. He has no cough, fever, chills, sweats or purulent sputum. PAST MEDICAL HISTORY Some coronary artery disease with preserved LV function, hypertension, paroxysmal atrial fibrillation, aspirin allergy. PAST SURGICAL HISTORY Rotator cuff, left knee surgery, right elbow surgery. SOCIAL HISTORY As noted, quit smoking cigarettes 35 years ago, occasional cigars. No illicit drugs or alcohol. is . 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 FAMILY HISTORY Negative for coronary artery disease. ALLERGIES Diclofenac, aspirin, nonsteroidals, latex, penicillin, pyrazoles. HOME MEDICATIONS 1. Metoprolol. 2. Brilinta. 3. Nitroglycerin. 4. Cordarone. 5. Sallis. REVIEW OF SYSTEMS CONSTITUTIONAL: No fevers, chills. HEENT: No rhinorrhea, nasal congestion. PULMONARY: Possibly, some short of breath or just very fatigued. He thinks he may snore some. He does admit to fatigue. GENITOURINARY: No hematuria or dysuria. ENDOCRINE: No polyuria, polydipsia. HEMATOLOGIC: He does have easy bruising, bleeding. SKIN: No rash. MUSCULOSKELETAL: No swollen joints. Unit #: [id number] #: [id number] Patient: TELLO JORDAN PHYSICAL EXAMINATION GENERAL APPEARANCE: A white male in no distress. VITAL SIGNS: Blood pressure 157/75. Pulse 69. Respiratory rate 16. Afebrile. O2 sat room air 99%. HEENT: Normocephalic, atraumatic. Pupils equal, round and reactive. Sclerae nonicteric. Nasal passages patent. Posterior pharynx clear. Mucous membranes moist. Mallampati 4. NECK: Supple. Trachea midline. No cervical or supraclavicular lymph adenopathy. LUNGS: Clear anteriorly and laterally. CARDIAC: Regular rate and rhythm. I could not appreciate murmur, rub or gallop. ABDOMEN: Nontender. Bowel sounds present. No hepatosplenomegaly. EXTREMITIES: Without clubbing or cyanosis. There is trace edema bilaterally. No cords palpated. NEUROLOGIC: Awake, alert, oriented x3. Cranial nerves grossly intact. Muscle strength symmetric. SKIN: Warm and dry. PSYCHIATRIC: Affect calm. IMPRESSION 1. Multiple noncalcified pulmonary nodules on abdomen and pelvic CT scan new from previous CT scan. 2. Abdominal pain postop laparoscopic cholecystectomy with biliary stent. 3. Abdominal fluid collections. 4. Paroxysmal atrial fibrillation. 5. Hypertension. 6. History of cigar smoking. PLAN We will obtain chest CT scan without contrast to evaluate pulmonary nodules. We will make further recommendations pending this. Dictated by... Lazarus Nieves M.D. YEYO/haile TD: 06/05/2016 06:30 JOB #: [id number] CC: Jakci Stewart M.D. CONSULTATION REPORT Page 1 of 1 X Lazarus Nieves MD X CONSULTATION REPORT
--- NOTE | ~2016-06-03 | EKG ---
PATIENT: TELLO JORDAN UNIT #: [id number] Ventricular Rate: 63 BPM Atrial Rate: 63 BPM P-R Interval: 224 ms QRS Duration: 140 ms Q-T Interval: 488 ms QTC Calculation(Bezet): 499 ms P [place]: 65 degrees Calculated R [place]: -6 degrees Calculated T [place]: -4 degrees Diagnosis Line: Sinus rhythm with 1st degree A-V block with Diagnosis Line: Premature supraventricular complexes Diagnosis Line: Right bundle branch block Diagnosis Line: Abnormal ECG Diagnosis Line: When compared with ECG of 29-MAY-2016 06:14, Diagnosis Line: Premature supraventricular complexes are now Diagnosis Line: Present Diagnosis Line: Confirmed by MOISES DARLING MD ([id number]) on 06/09/2016 Diagnosis Line: 10:22:30 PM INTERPRETING MD: LISSET PHELPS
--- NOTE | ~2016-06-03 | CO ---
Unit #: [id number] #: [id number] Patient: TELLO MEEK [id number] [address] [place], [place] [address] [id number] I MR#: [id number] NAME: TELLO MEEK ROOM: 310 Age: 75 Sex: M Admission Date: 06/03/2016 : 1940 Attending Physician: Ramiro Diaz III, M.D. Primary Care Physician: Carl Dueñas M.D. Consultation Date: 06/04/2016 CONSULTATION REPORT HISTORY AND EXAM Mr. Meek is a 75-year-old gentleman who is seven days status post ERCP with stent placement for a distal common bile duct stricture and followup laparoscopic cholecystectomy with lysis of adhesions. For the last two days at home he was complaining of worsening abdominal pain and developed nausea and vomiting that was nonbloody. He went to see Dr. Robles in the office as an outpatient CT scan was ordered and the CT scan revealed some intraabdominal fluid collections, ileus and multiple new pulmonary nodules. The etiology of the nodules was uncertain. In reviewing the cytology from his recent ERCP there were some atypical cells and his CA19-9 tumor marker was elevated. The patient denies any fever, chills or night sweats at home. PAST MEDICAL HISTORY 1. Atrial fibrillation. 2. Hypertension. 3. Tobacco abuse. 4. Rotator cuff repair. 5. Knee and elbow surgery. 6. Cardiac catheterization. ALLERGIES Penicillin, aspirin, diclofenac and latex. CURRENT MEDICATIONS His current medications include Brilinta, nitroglycerin p.r.n., Cordarone and [place]. FAMILY HISTORY He is unaware of any chronic or inheritable diseases. SOCIAL HISTORY Lives at home, he does smoke and use alcohol on a social basis. REVIEW OF SYSTEMS No hematemesis, hematochezia or melena. Denied fever, chills or night sweats; he has not had a productive cough. PHYSICAL EXAMINATION VITAL SIGNS: On exam temperature is 98.8, pulse is 97, respirations were 28 but he denied shortness of breath, blood pressure 150/118. GENERAL APPEARANCE: He is awake, alert and oriented. HEENT: No scleral icterus. Unit #: [id number] #: [id number] Patient: TELLO MEEK NECK EXAM: No carotid bruits. CARDIAC EXAM: A regular rhythm without murmur. LUNGS: Rhonchi throughout. ABDOMEN: Abdomen is soft. There is no rebound tenderness. His wounds have no evidence of infection and there is no drainage. He does not have any localized tenderness to the abdomen. EXTREMITIES: No cyanosis, clubbing or edema. NEUROLOGIC: Neurologically grossly intact. DIAGNOSTIC STUDIES LABORATORY: Basic metabolic panel is unremarkable except for a potassium of 2.9. Total bilirubin is 1.1, amylase and lipase 7 and 15. Urinalysis is negative. White count 4400, hemoglobin 10.3, platelets 182,000. IMAGING: CT scan as discussed. ASSESSMENT AND PLAN Postoperative nausea, vomiting, dehydration, hypokalemia. He will need to be rehydrated and correct his potassium. His CT is consistent with abdominal ileus. The abdominal fluid collections are probably reactive to his recent surgery and I doubt that they are clinically significant however we will continue to follow them. Because of his history of atrial fibrillation and hypertension we will ask Cardiology to see the patient. He has new and multiple pulmonary nodules, whether this is infectious or malignant is unknown. Pulmonary consultation will be obtained. He has been started on Flagyl and Levaquin. Because of the multiplicity of the nodules and the bilateral diffuse distribution, if this is not malignant I would be concerned he might have some underlying endocarditis. Blood cultures have been ordered. Echocardiogram has been ordered. Dictated by... Neto Shook M.D. JUAN JOSÉ/thom TD: 06/04/2016 22:35 JOB #: [id number] CONSULTATION REPORT Page 1 of 1 X Neto Shook MD X CONSULTATION REPORT
--- NOTE | ~2016-06-03 | CT57 ---
[facility] A Service of [facility] & [facility] RADIOLOGY TEXT RESULTS PATIENT: TELLO JORDAN LOCATION: [facility] 310-01 : 41 UNIT #: [id number] AGE: [address]: Ramiro Diaz III, MD SEX: M ORDER DR: [id number] [facility] [address] [facility] [place], [place] [address] [id number] I MR#: [id number] Acc #: [id number] NAME: TELLO JORDAN : 1940 SEX: M STUDY DATE/TIME: 06/04/2016 13:59 UNIT: [address] ROOM: [facility] STUDY DESCRIPTION: CT Chest Wo Cont Attending Physician: Ramiro Diaz III, M.D. Ordering Physician: Lazarus Nieves M.D. Primary Care Physician: Carl Dueñas M.D. MEDICAL IMAGING REPORT This report is preliminary unless electronic signature is present EXAM CT chest without contrast 06/04/2016 INDICATIONS Lung nodule seen on CT done June 03, 2016. This was a CT of the abdomen and pelvis. TECHNIQUE Axial CT images were obtained from the thoracic inlet through the dome of the diaphragm. No intravenous contrast material was administered. This CT exam was performed with one or more of the following radiation dose reduction techniques: automatic exposure control, adjustment of mA and/or kV according to patient size, and iterative reconstruction. FINDINGS This patient has multiple scattered noncalcified pulmonary nodules, many of these appear to be new when compared to the prior study from June 2015. The single largest on the right measures about 8 mm, while on the left single largest measures about 8 mm. The thyroid gland, trachea and esophagus appear unremarkable. There are shotty mediastinal lymph nodes many of which appear to have show some calcification. These were present on the prior CT from 2015. Enlarged bilateral hilar nodes were also noted on that study and I do not think are significantly increased in size when compared to that exam. Subcarinal lymph node actually measures smaller than on the prior study. There are coronary artery calcifications. There is no pleural or pericardial effusion. Thoracic aorta measures within normal size limits. Images through the upper abdomen demonstrate pneumobilia. Patient does have a common bile duct stent. Postsurgical changes are identified within the epigastrium. The gallbladder is surgically absent and there is some ill-defined stranding seen within the gallbladder fossa likely related to recent surgery. Review of bony windows does not demonstrate any aggressive osseous abnormalities. [facility] A Service of [facility] & [facility] RADIOLOGY TEXT RESULTS PATIENT: TELLO JORDAN LOCATION: [facility] 310-01 : 41 UNIT #: [id number] AGE: [address]: Ramiro Diaz III, MD SEX: M ORDER DR: The patient does appear to have some pancreatic ductal dilatation. IMPRESSION 1. Scattered bilateral pulmonary nodules which are new when compared to a prior CT from 2016. These still may reflect benign infectious or inflammatory nodules but I would suggest short-term CT followup in 3 months to document resolution or stability. Patient is also noted to have mediastinal and hilar adenopathy which is probably not significantly changed since last year. 2. Postsurgical changes are identified within the upper abdomen, likely reflecting recent cholecystectomy. Patient is noted to have pneumobilia and has a common bile duct stent. No discrete drainable fluid collections are seen within the visualized portions of the abdomen. Please see the body of the report for any other additional incidental findings. Dictated by... Demi Johnson M.D. THIS IS AN ELECTRONICALLY VERIFIED REPORT Demi Johnson M.D. at 06/05/2016 7:53 AM POWER/martin TD: 06/04/2016 18:27 JOB #: [id number] MEDICAL IMAGING REPORT Page 1 of 1 COPY
[2016-06-03 21:48] LABS: BASOPHIL% 0.4 % (0-2.5); DIFF IND NO; EOSINOPHIL% 0.5 % (0.0-7.0); HEMOGLOBIN 10.3 gm/dL (13.0-16.0); LYMPHOCYTE# 0.8 X10e3 (1.0-3.5); LYMPHOCYTE% 17.9 % (17.0-45.0); MEAN CELL VOLUME 95.7 FL (83-96); MEAN CORPUSCULAR HEMOGLOBIN 31.9 PG (28-34); MEAN CORPUSCULAR HGB CONC 33.4 g/dL (30-36); MEAN PLATELET VOLUME 8.1 FL (6.5-11.5); MONOCYTE# 0.8 X10e3 (0-1.0); MONOCYTE% 17.7 % (3.0-12.0); NEUTROPHIL# 2.8 X10e3 (1.5-7.1); NEUTROPHIL% 63.5 % (40-75); PLATELET COUNT 182 X10e3 (140-420); RED BLOOD COUNT 3.23 X10e (3.90-5.60); RED CELL DISTRIBUTION WIDTH 15.4 % (11.0-15.5); WHITE BLOOD COUNT 4.4 X10e3 (4.0-10.5)
[~2016-06-03 22:14] MED LIST changes: +HYDROCODON-ACE1 EAC9 PO
[2016-06-03 22:18] LABS: ALBUMIN SERUM 2.7 g/dL (3.5-5.0); BILIRUBIN, DIRECT 0.3 mg/dL (0.0-0.2); BILIRUBIN,INDIRECT 0.8 mg/dL (0.0-0.9); BILIRUBIN,TOTAL 1.1 mg/dL (0.2-2.0); GLOM FILT RATE Estimated 73.8 mL/min (>60); PROTEIN TOTAL SERUM 6.3 g/dL (6.0-8.3)
[2016-06-03 22:19] LABS: POTASSIUM 2.9 mmol/L (3.5-5.1)
[2016-06-03 23:16] LABS: URINE SOURCE CLEAN CATCH
[2016-06-03 23:19] LABS: URINE APPEARANCE CLEAR; URINE BILIRUBIN NEG (NEG); URINE BLOOD NEG (NEG); URINE COLOR YELLOW; URINE GLUCOSE NEG (NEG); URINE KETONE NEG (NEG); URINE LEUKOCYTE ESTERASE NEG (NEG); URINE NITRATE NEG (NEG); URINE PROTEIN NEG (NEG); URINE SPECIFIC GRAVITY 1.032 (1.003-1.035); URINE UROBILINOGEN 0.2 MG/DL (NEG)
[2016-06-03 23:23] LABS: CULTURE INDICATED? NO
[2016-06-04 07:30] LABS: BASOPHIL% 0.3 % (0-2.5); EOSINOPHIL% 0.7 % (0.0-7.0); HEMATOCRIT 31.5 % (38.0-50.0); HEMOGLOBIN 10.3 gm/dL (13.0-16.0); LYMPHOCYTE# 1.4 X10e3 (1.0-3.5); LYMPHOCYTE% 24.7 % (17.0-45.0); MEAN CORPUSCULAR HEMOGLOBIN 31.8 PG (28-34); MEAN CORPUSCULAR HGB CONC 32.8 g/dL (30-36); MEAN PLATELET VOLUME 8.3 FL (6.5-11.5); MONOCYTE% 17.9 % (3.0-12.0); NEUTROPHIL# 3.1 X10e3 (1.5-7.1); NEUTROPHIL% 56.4 % (40-75); PLATELET COUNT 179 X10e3 (140-420); RED BLOOD COUNT 3.25 X10e (3.90-5.60); RED CELL DISTRIBUTION WIDTH 15.7 % (11.0-15.5); WHITE BLOOD COUNT 5.5 X10e3 (4.0-10.5)
[2016-06-04 07:34] LABS: DIFF IND NO
[2016-06-04 08:01] LABS: ALBUMIN SERUM 2.7 g/dL (3.5-5.0); BILIRUBIN,TOTAL 1.1 mg/dL (0.2-2.0); CALCIUM SERUM 7.9 mg/dL (8.4-10.2); GLOM FILT RATE Estimated 73.8 mL/min (>60); POTASSIUM 3.5 mmol/L (3.5-5.1); PROTEIN TOTAL SERUM 6.1 g/dL (6.0-8.3)
[2016-06-04 09:01] LABS: PHOSPHOROUS 3.2 mg/dL (2.5-4.6)
[2016-06-04] MEDS ORDERED: LOPRESSOR PO (13:23)
[2016-06-04] MEDS ORDERED: AMIODARONE HCL100 MG PO (13:23)
[2016-06-04] MEDS ORDERED: ASPIRIN81 M2 PO (13:23)
[2016-06-05 06:54] LABS: HEMATOCRIT 29.8 % (38.0-50.0); MEAN CORPUSCULAR HEMOGLOBIN 32.2 PG (28-34); MEAN CORPUSCULAR HGB CONC 33.6 g/dL (30-36); MEAN PLATELET VOLUME 8.2 FL (6.5-11.5); RED BLOOD COUNT 3.1 X10e (3.90-5.60); RED CELL DISTRIBUTION WIDTH 15.6 % (11.0-15.5); WHITE BLOOD COUNT 5.1 X10e3 (4.0-10.5)
[2016-06-05 07:39] LABS: CALCIUM SERUM 7.8 mg/dL (8.4-10.2); GLOM FILT RATE Estimated 73.8 mL/min (>60); POTASSIUM 3.5 mmol/L (3.5-5.1)
[2016-06-06 09:13] LABS: HEMATOCRIT 32.8 % (38.0-50.0); HEMOGLOBIN 10.6 gm/dL (13.0-16.0); MEAN CELL VOLUME 97.4 FL (83-96); MEAN CORPUSCULAR HEMOGLOBIN 31.4 PG (28-34); MEAN CORPUSCULAR HGB CONC 32.3 g/dL (30-36); MEAN PLATELET VOLUME 8.5 FL (6.5-11.5); RED BLOOD COUNT 3.37 X10e (3.90-5.60); RED CELL DISTRIBUTION WIDTH 16.1 % (11.0-15.5); WHITE BLOOD COUNT 5.7 X10e3 (4.0-10.5)
[2016-06-06 09:57] LABS: BUN/CREATININE RATIO 7.77; CALCIUM SERUM 8.2 mg/dL (8.4-10.2); CREATININE SERUM 0.9 mg/dL (0.6-1.4); GLOM FILT RATE Estimated 83.8 mL/min (>60); MAGNESIUM 2.1 mg/dL (1.6-3.0)
[2016-06-07 06:00] LABS: BASOPHIL% 0.1 % (0-2.5); EOSINOPHIL# 0.1 X10e3 (0-0.7); EOSINOPHIL% 2.4 % (0.0-7.0); HEMATOCRIT 29.7 % (38.0-50.0); HEMOGLOBIN 9.7 gm/dL (13.0-16.0); LYMPHOCYTE% 18.5 % (17.0-45.0); MEAN CELL VOLUME 95.7 FL (83-96); MEAN CORPUSCULAR HEMOGLOBIN 31.2 PG (28-34); MEAN CORPUSCULAR HGB CONC 32.6 g/dL (30-36); MEAN PLATELET VOLUME 8.3 FL (6.5-11.5); MONOCYTE# 0.7 X10e3 (0-1.0); MONOCYTE% 12.1 % (3.0-12.0); NEUTROPHIL# 3.8 X10e3 (1.5-7.1); NEUTROPHIL% 66.9 % (40-75); PLATELET COUNT 164 X10e3 (140-420); RED BLOOD COUNT 3.11 X10e (3.90-5.60); RED CELL DISTRIBUTION WIDTH 15.6 % (11.0-15.5); WHITE BLOOD COUNT 5.6 X10e3 (4.0-10.5)
[2016-06-07 06:07] LABS: DIFF IND NO
[2016-06-07 06:41] LABS: CALCIUM SERUM 8.2 mg/dL (8.4-10.2); CREATININE SERUM 0.9 mg/dL (0.6-1.4); GLOM FILT RATE Estimated 83.8 mL/min (>60); POTASSIUM 4.2 mmol/L (3.5-5.1)
== END 2016-06-08 09:23 | disposition home or self-care (01) | DRG 393 ==
LOC: CED 22:14 → CEDOF 23:25 → C3A PCU 06-04 11:50
PROVIDERS: Emergency Medicine; Specialist; Surgery
PROC: B246YZZ Ultrasonography of Right and Left Heart using Other Contrast (ICD-10-PCS; principal; 2016-06-04)
DX: K91.3 Postprocedural intestinal obstruction (principal); K83.1 Obstruction of bile duct; I48.0 Paroxysmal atrial fibrillation; E86.0 Dehydration; I10 Essential (primary) hypertension; E87.6 Hypokalemia; I25.10 Atherosclerotic heart disease of native coronary artery without angina pectoris; R91.1 Solitary pulmonary nodule; Z87.891 Personal history of nicotine dependence; Z88.0 Allergy status to penicillin; Z88.6 Allergy status to analgesic agent; Z91.040 Latex allergy status; R11.2 Nausea with vomiting, unspecified; R94.5 Abnormal results of liver function studies; R91.8 Other nonspecific abnormal finding of lung field; R59.0 Localized enlarged lymph nodes; M51.36 Other intervertebral disc degeneration, lumbar region; K40.90 Unilateral inguinal hernia, without obstruction or gangrene, not specified as recurrent; Z90.49 Acquired absence of other specified parts of digestive tract; Z98.890 Other specified postprocedural states
CPT/HCPCS: 36415; 71250; 74177; 80048; 80053; 80076; 81003; 82150; 83605; 83690; 83735; 83880; 84100; 85025; 85027; 87040; 93005; 93306; 96365; 96375; 99285; J0360; J1170; J1335; J1650; J1956; J2270; J2405; J2550; J3475; J3490; Q9967

== ENCOUNTER 2016-06-12 16:04 | Inpatient (IN) | payer MEDICARE, BC ==
--- NOTE | ~2016-06-12 | DS ---
Unit #: [id number] #: [id number] Patient: TELLO JORDAN [id number] [address] [place], [place] [address] [id number] I MR#: [id number] NAME: TELLO JORDAN. ROOM: 225 Age: 75 Sex: M Admission Date: 06/12/2016 : 1940 Discharge Date: 06/20/2016 Attending Physician: Neto Shook M.D. Primary Care Physician: Carl Dueñas M.D. DISCHARGE SUMMARY BRIEF SUMMARY The patient is a 75-year-old white male who was admitted complaining of abdominal pain and some nausea and vomiting. Workup revealed evidence of probable ileus. He has had multiple things recently. On May 28, he had a laparoscopic cholecystectomy for acute cholecystitis with cholelithiasis. He also has a known benign stricture of the common duct and underwent ERCP by Dr. Robles. Since his admission, he has had intermittent problems with nausea, some vomiting and abdominal pain which is nonspecific mostly. CT scan on admission revealed evidence of a couple small fluid collections with minimal inflammatory changes. Fluid collection has seemingly lessened before. His stents are still in place. He also has evidence of some chronic pancreatitis. HOSPITAL COURSE The patient was admitted, treated conservatively, and seen by Dr. Robles. Underwent upper endoscopy and was noted to have both duodenitis and gastritis approximately five days ago. At present, he is tolerating diet, ambulating well. His abdomen is soft, nontender, benign. His last hemoglobin was 9.6, white blood cell count 4800. Liver function tests were normal. Albumin 2.6. The plan will be to discharge the patient home in satisfactory condition. He will be resuming his home medications and following up with Dr. Robles in the office in the next week or two. He will also be following up with us in the office in the next week or two. He will be on a regular home diet, normal activity otherwise. He will be returning to work in approximately a week. Dictated by... Phu Bull Jr., M.D. CJ/magaly TD: 06/23/2016 06:57 JOB #: [id number] Unit #: [id number] #: [id number] Patient: TELLO JORDAN A DISCHARGE SUMMARY Page 1 of 1 X Phu Bull MD X DISCHARGE SUMMARY
--- NOTE | ~2016-06-12 | CO ---
Unit #: [id number] #: [id number] Patient: TELLO MEEK [id number] [address] [place], [place] [address] [id number] I MR#: [id number] NAME: TELLO MEEK. ROOM: 225 Age: 75 Sex: M Admission Date: 06/12/2016 : 1940 Attending Physician: Neto Shook M.D. Primary Care Physician: Carl Dueñas M.D. Consultation Date: 06/13/2016 CONSULTATION REPORT HISTORY OF PRESENT ILLNESS Mr. Meek is a 75-year-old gentleman who was discharged on 06/08/2016 after a second hospitalization where he underwent ERCP and laparoscopic cholecystectomy. At the time of his previous admission he had several benign appearing fluid collections and was complaining of constipation and nausea. He appeared on evaluation to have an ileus and once that resolved he was able to be discharged home. He came back to the emergency room last night complaining of persistent abdominal pain. He stated that he had not had a bowel movement since he left the hospital. He had nausea. CT scan in the emergency room this time showed that some of the fluid collection had resolved and there is a residual fluid collection in the pelvis that is smaller and measures 3.9 x 2.7 x 4.1 cm. Previously this was not amenable to percutaneous drainage. There is some peripheral enhancement, but no air bubbles. There are also changes of the pancreatic duct and parenchyma compatible with chronic pancreatitis. PAST MEDICAL HISTORY 1. Recent ERCP revealing a benign ductal stricture. 2. Multiple pulmonary nodules, probably inflammatory, being followed by Dr. Nieves. 3. Atrial fibrillation. 4. Hypertension. 5. Tobacco abuse. 6. Rotator cuff repair. 7. Knee, elbow, shoulder. 8. Previous cardiac catheterization. SOCIAL HISTORY The patient lives at home. He continues to smoke. He says he is a social alcohol drinker. FAMILY HISTORY The patient is unaware of any chronic or inheritable diseases. ALLERGIES Penicillin, aspirin, diclofenac and latex. CURRENT MEDICATIONS 1. Brilinta. 2. Nitroglycerin. 3. Cordarone 4. [place]. REVIEW OF SYSTEMS Unit #: [id number] #: [id number] Patient: TELLO MEEK No vomiting. No hematochezia or melena. No fever, chills or night sweats. He has not had a productive cough. He has no dysuria. He has not had a bowel movement since leaving our hospital on 06/08/2016. PHYSICAL EXAMINATION GENERAL: He is awake, alert, oriented. He does not appear to be in that much distress. Mostly he is frustrated over his prolonged medical course and need to return to the hospital. VITALS: Temperature 98.7, pulse 76, respiratory rate 18, blood pressure 152/116. HEENT: Unremarkable. LUNGS: Clear. HEART: Irregular rhythm. ABDOMEN: Soft and nondistended. He has king-incisional tenderness, but otherwise no rebound or involuntary guarding. EXTREMITIES: No edema. NEUROLOGIC: Grossly intact. SKIN: Bruising from his Lovenox, but no other rashes or lesions. DIAGNOSTIC STUDIES IMAGING: CT scan as discussed. LABORATORY: On admission, CMP is unremarkable except for potassium of 3.1. His albumin is 2.7, liver chemistries are normal. Lipase is normal. White blood cell count 10,300 with 76% neutrophils, 10% lymphocytes, 12% monocytes. Hemoglobin 9.6, platelets 279,000. No urinalysis was done. ASSESSMENT/PLAN Patient with postoperative abdominal pain, constipation and nausea with a persistent but improved fluid collection in the pelvis. There has been resolution of other fluid collection that he had previously. At this time we are going to admit him and hydrate him. We will put him on some antibiotics because of his fluid collection in case there is some inflammatory response associated with that. He previously was not amenable to percutaneous drainage, but I will review with the radiologist to see if there has been any change in that status. I will replete his potassium, treat his constipation and because of his elevated blood pressure make sure he is back on his medication and controlled. Dictated by... Gala Coombs/tere TD: 06/14/2016 13:07 JOB #: [id number] Unit #: [id number] #: [id number] Patient: TELLO MEEK CONSULTATION REPORT Page 1 of 1 X Neto Shook MD CONSULTATION REPORT
--- NOTE | ~2016-06-12 | OR ---
Unit #: [id number] #: [id number] Patient: TELLO JORDAN [id number] [address] [place], [place] [address] [id number] MR#: [id number] NAME: TELLO JORDAN. ROOM: [facility] Date of Procedure: 06/15/2016 Admission Date: 06/12/2016 Surgeon: Nabor Robles M.D. : 1940 Attending Physician: Neto Shook M.D. Primary Care Physician: Carl Dueñas M.D. OPERATIVE REPORT PRIMARY CARE PHYSICIAN Carl Dueñas M.D. PREOPERATIVE DIAGNOSES Nausea, dyspepsia, early satiety, and epigastric pain. PROCEDURES PERFORMED Upper gastrointestinal endoscopy and biopsy. POSTOPERATIVE DIAGNOSES 1. The patient has mild prepyloric antral gastritis. This was primarily in the form of focal erythema in the antral area. 2. Mild focal patchy erosive duodenitis involving the duodenal bulb. 3. Rest of the examination up to third part of duodenum was normal. The patient did have an indwelling biliary stent, which was felt to be in normal position. SEDATION USED MAC. DESCRIPTION OF PROCEDURE Following detailed explanation of the potential risks and complications of an upper endoscopy, namely perforation, bleeding, and complications related to sedation, the patient was brought to GI lab and laid in the left lateral decubitus position. Lubricated tip of the Olympus video upper endoscope was passed through the bite block into the proximal esophagus under direct vision. The entire esophageal mucosa was examined and appeared normal. Z-line was nicely demarcated, there being no esophagitis or hiatus hernia. The scope was then advanced into the gastric cavity and the latter was insufflated. Mucosa of the fundus, body, and antrum was examined and the patient was noted to have prepyloric antral erythema and erythematous streaks. Pylorus was intubated with visualization of the duodenal bulb. The latter was noted to have mild focal patchy erosive duodenitis. Second and third part of duodenum were normal. Upon withdrawal and retroflexion, incisura, cardia, and greater curve was examined and biopsy was obtained from the antrum for CLOtest. The scope was then withdrawn in the distal esophagus. Entire esophageal mucosa was examined all the way up to pharynx. No additional findings were noted. The patient tolerated the procedure without any postprocedure complications. Unit #: [id number] #: [id number] Patient: TELLO JORDAN Dictated by.Gala Cunningham/gabriella TD: 06/16/2016 01:03 JOB #: [id number] OPERATIVE REPORT Page 1 of 1 X Nabor Robles MD PROCEDURE OPERATIVE NOTE
--- NOTE | ~2016-06-12 | CT2 ---
[facility] A Service of [facility] & [facility] RADIOLOGY TEXT RESULTS PATIENT: TELLO JORDAN LOCATION: [facility] : 41 UNIT #: [id number] AGE: [address]: Neto Shook MD SEX: M ORDER DR: [id number] [facility] [address] [place], [place] [address] [id number] I MR#: [id number] Acc #: [id number] NAME: TELLO JORDAN. : 1940 SEX: M STUDY DATE/TIME: 06/12/2016 19:05 UNIT: [facility] ROOM: [facility] STUDY DESCRIPTION: CT Abd and Pelv W Cont Attending Physician: Neto Shook M.D. Ordering Physician: Neto Zhang M.D. Primary Care Physician: Carl Dueñas M.D. MEDICAL IMAGING REPORT This report is preliminary unless electronic signature is present EXAM CT abdomen and pelvis with oral and IV contrast HISTORY Elevated white blood cell count today. Low pelvic and abdomen pain. Vomiting today. TECHNIQUE This CT exam was performed with one or more of the following radiation dose reduction techniques: automatic control, adjustment of mA and/or kV according to patient size, and iterative reconstruction. FINDINGS CT abdomen and pelvis was performed with IV contrast. CT ABDOMEN: Cholecystectomy, pneumobilia, and biliary stent, and mild subcutaneous edema over the upper abdominal midline, corresponding to recent postop change. Small incidental [place]chdalek hernia in the posterior right lower chest. Marked pancreatic ductal dilatation, measuring 1.5 cm in diameter. Generalized pancreatic parenchymal atrophy. No bowel dilatation. Vtji-ia-ywpfqvcp upper abdominal venous collaterals. Mild splenic enlargement measuring 13.5 cm. The adrenal glands and kidneys are unremarkable. Normal caliber abdominal aorta. CT PELVIS: Normal appendix. There is a peripherally enhancing lobulated fluid collection in the right posterior pelvis, along the right lateral margin of the rectum measuring 3.9 x 2.7 cm x 4.1 cm, smaller than on the prior CT, but with new peripheral enhancement and new mild adjacent fat stranding. There has been near complete resolution of the smaller fluid collection in the left central pelvis since the prior exam. This could be a resolving postoperative fluid collection, but the peripheral enhancement raises suspicion of possible abscess. No associated air bubbles. Mild prostatic enlargement. The urinary bladder is normal. Moderately severe STS. 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 IMPRESSION 1. Interval decrease in the size of the loculated fluid collection in the right posterior lower pelvis along the right lateral margin of the rectum now measuring 3.9 x 2.7 cm x 4.1 cm. This previously measured 5 cm in maximal dimension. There is increased or new peripheral enhancement about this collection and increased adjacent fat stranding. Considerations include an abscess or resolving postoperative fluid collection. Given the peripheral enhancement, this increases suspicion of a small abscess. There are no associated air bubbles. 2. Interval near-complete resolution of the fluid collection in the left central pelvis since the prior study. 3. No new fluid collections. 4. Postop changes of recent cholecystectomy. 5. Stable marked dilatation of the pancreatic duct and pancreatic parenchymal atrophy compatible with chronic pancreatitis. Dictated by... Juan Ray M.D. THIS IS AN ELECTRONICALLY VERIFIED REPORT Juan Ray M.D. at 06/13/2016 11:18 PM SOCORRO/darrius TD: 06/13/2016 02:51 JOB #: [id number] MEDICAL IMAGING REPORT Page 1 of 1 COPY
--- NOTE | ~2016-06-12 | CO ---
Unit #: [id number] #: [id number] Patient: TELLO MEEK [id number] [address] [place], [place] [address] [id number] MR#: [id number] NAME: TELLO MEEK. ROOM: 225 Age: 75 Sex: M Admission Date: 06/12/2016 : 1940 Attending Physician: Neto Shook M.D. Primary Care Physician: Cral Dueñas M.D. Consultation Date: 06/14/2016 CONSULTATION REPORT PRIMARY CARE PHYSICIAN Carl Dueñas M.D. REASON FOR CONSULTATION Abdominal pain and pancreatic ductal dilation. HISTORY OF PRESENT ILLNESS Mr. Meek is a 75-year-old white gentleman. The patient underwent laparoscopic cholecystectomy on 05/28/2016 and subsequently was admitted with rather severe and diffuse abdominal pain mostly in the lower abdomen and found him pelvic abscesses. These were treated with antibiotics and he was discharged home. He tells me his pain is still persistent and is mostly in the left lower quadrant of the abdomen. He also mentions diffuse pain all over the abdomen particularly in the epigastric and subcostal areas radiating to the back. He also is quite nauseated and mentions poor appetite, early satiety, and fullness after eating little bit of food. He has been afebrile since he was discharged from the hospital. PAST MEDICAL HISTORY Enumerated in the previous consultations and include paroxysmal atrial fibrillation, hypertension, mitral regurgitation, left ventricular hypertrophy, and tricuspid regurgitation. Also, history of coronary artery disease. PAST SURGICAL HISTORY Included a right knee surgery, right elbow repair, rotator cuff surgery, and cholecystectomy. The patient is also status post ERCP. He was found to have a stricture in the intrapancreatic portion of the common bile duct and had a biliary stent placed shortly after cholecystectomy. MEDICATIONS At home included metoprolol, Brilinta, nitroglycerin, Cordarone. He was recently on Pradaxa, which was stopped because of surgery. ALLERGIES He is allergic to Voltaren, salicylates, penicillin, and aspirin. REVIEW OF SYSTEMS Detailed review of organ system reveals some weight loss. There is no history of fever, chills, or rigors. There is a history of diffuse abdominal pain. No history of headache, seizures, chest pain, or syncope. No history of cough, expectoration, or hemoptysis. No history of dysuria, hematuria, or pyuria. No history of focal seizures or extremity weakness. Unit #: [id number] #: [id number] Patient: TELLO MEEK Rest of the review of organ systems is unremarkable. FAMILY HISTORY None of colon, pancreatic cancer, or liver disease. PHYSICAL EXAMINATION GENERAL: He is alert and oriented, and appears comfortable. VITAL SIGNS: Stable with a temperature of 98.7, pulse is 65 per minute and regular, respiratory rate is 16, blood pressure is 128/58. He weighs 260 pounds and is close to his baseline weight. HEENT: He has mild pallor. There being no icterus, lymphadenopathy, or peripheral edema. CARDIOVASCULAR: Reveals normal heart sounds. No murmurs on auscultation. LUNGS: Reveal normal breath sounds. Good air entry. ABDOMEN: Obese and soft. The patient has localized tenderness in left lower quadrant of the abdomen. There is no rigidity, rebound, or guarding. Renal angles are not tender. DIAGNOSTIC STUDIES LABORATORY RESULTS: Shows a white count of 12,900 with left shift. IMAGING STUDIES: CT scan shows considerably dilated pancreatic duct and abscess in the right posterior pelvis, which is about 4 cm x 3 cm in size. CLINICAL IMPRESSION 1. Abscess in the right posterior pelvis. The etiology of this is unclear whether it is postoperative collection or not from surgery is unclear. The patient is currently on IV antibiotics. 2. Dilated pancreatic duct. It is possible that the patient may have a pancreatic mass. This will require endoscopic ultrasound. This will be scheduled on an outpatient basis. It is noteworthy his CA-19-9 has mildly elevated. We will also consider an upper endoscopy in view of the upper abdominal symptoms of nausea, dyspepsia, and early satiety. The above plan was discussed with the patient and he was reassured. Thank you for asking me to see this pleasant gentleman. I appreciate the consult. Dictated by... Gala Steen/gabriella TD: 06/15/2016 23:30 JOB #: [id number] CONSULTATION REPORT Page 1 of 1 X Nabor Robles MD X CONSULTATION REPORT
--- NOTE | ~2016-06-12 | CT4 ---
[facility] RADIOLOGY TEXT RESULTS PATIENT: TELLO JORDAN LOCATION: [facility] : 41 UNIT #: [id number] AGE: [address]: Neto Shook MD SEX: M ORDER DR: [id number] [facility] [address]. [place], [place] [address] [id number] I MR#: [id number] Acc #: [id number] NAME: TELLO JORDAN : 1940 SEX: M STUDY DATE/TIME: 06/17/2016 9:38 UNIT: [facility] ROOM: 225 STUDY DESCRIPTION: CT Abd and Pelv Wo Cont Attending Physician: Neto Shook M.D. Ordering Physician: Kenton Peterson M.D. Primary Care Physician: Carl Dueñas M.D. MEDICAL IMAGING REPORT This report is preliminary unless electronic signature is present EXAM CT abdomen and pelvis without contrast INDICATIONS Right lower quadrant abdominal pain and nausea since 06/09/2016. Patient is 3 weeks status post cholecystectomy. PROCEDURE Unenhanced CT of the abdomen and pelvis COMPARISON 06/12/[address] exam was performed with one or more of the following radiation dose reduction techniques: automatic exposure control, adjustment of mA and/or kV according to patient size, and iterative reconstruction. FINDINGS Abdomen without contrast. There are a few tiny nodules scattered in the lung bases similar to the prior. Patient is status post cholecystectomy. There is a common duct stent in place. No significant bile duct dilation. There is a small amount of pneumobilia. Otherwise the liver is unremarkable. Spleen measures 14 cm. Kidneys, adrenal glands are unremarkable. Prominence of the pancreatic duct in the body and tail is better seen on the recent contrast-enhanced study. The bowel loops are nondilated. No organized abdominal fluid collection. Pelvis without contrast: Previously demonstrated pelvic abscess measures [facility] RADIOLOGY TEXT RESULTS PATIENT: TELLO JORDAN LOCATION: [facility] : 41 UNIT #: [id number] AGE: [address]: Neto Shook MD SEX: M ORDER DR: 2.9 x 1.7 cm slightly smaller than on the prior. No new pelvic collection. No aggressive appearing bone lesion. IMPRESSION 1. Pelvic collection/abscess is slightly smaller than on the previous study. No new collection in the abdomen or pelvis. 2. Previous cholecystectomy. Common duct stent is similar to the prior. 3. Prominence of the pancreatic duct and the body and the tail is probably stable, but better seen on the recent contrast-enhanced study. Dictated by... Evaristo Caballero M.D. THIS IS AN ELECTRONICALLY VERIFIED REPORT Evaristo Caballero M.D. at 06/18/2016 6:50 AM MAYITO/martha TD: 06/17/2016 12:38 JOB #: [id number] MEDICAL IMAGING REPORT Page 1 of 1 COPY
[~2016-06-12 16:04] MED LIST changes: +AMIODARONE HCL100 MG PO; +ASPIRIN81 M2 PO
[2016-06-12 16:53] LABS: BASOPHIL% 0.2 % (0-2.5); EOSINOPHIL# 0.1 X10e3 (0-0.7); EOSINOPHIL% 1.2 % (0.0-7.0); HEMATOCRIT 29.3 % (38.0-50.0); HEMOGLOBIN 9.6 gm/dL (13.0-16.0); LYMPHOCYTE% 10.1 % (17.0-45.0); MEAN CELL VOLUME 94.6 FL (83-96); MEAN CORPUSCULAR HEMOGLOBIN 31.1 PG (28-34); MEAN CORPUSCULAR HGB CONC 32.9 g/dL (30-36); MEAN PLATELET VOLUME 7.9 FL (6.5-11.5); MONOCYTE# 1.3 X10e3 (0-1.0); MONOCYTE% 12.2 % (3.0-12.0); NEUTROPHIL# 7.9 X10e3 (1.5-7.1); NEUTROPHIL% 76.3 % (40-75); PLATELET COUNT 279 X10e3 (140-420); RED CELL DISTRIBUTION WIDTH 15.3 % (11.0-15.5); WHITE BLOOD COUNT 10.3 X10e3 (4.0-10.5)
[2016-06-12 16:54] LABS: DIFF IND NO
[2016-06-12 17:17] LABS: ALBUMIN SERUM 2.7 g/dL (3.5-5.0); BILIRUBIN, DIRECT 0.3 mg/dL (0.0-0.2); BILIRUBIN,INDIRECT 0.6 mg/dL (0.0-0.9); BILIRUBIN,TOTAL 0.9 mg/dL (0.2-2.0); CALCIUM SERUM 8.5 mg/dL (8.4-10.2); CREATININE SERUM 1.2 mg/dL (0.6-1.4); GLOM FILT RATE Estimated 59.2 mL/min (>60); POTASSIUM 3.1 mmol/L (3.5-5.1); PROTEIN TOTAL SERUM 6.6 g/dL (6.0-8.3)
[2016-06-12] MEDS ORDERED: LOPRESSOR PO (22:11)
[2016-06-12] MEDS ORDERED: ASPIRIN81 MG PO (22:11)
[2016-06-12] MEDS ORDERED: BRILINTA90 MG PO (22:13)
[2016-06-12] MEDS ORDERED: AMIODARONE PO (22:14)
[2016-06-13 06:57] LABS: BASOPHIL% 0.2 % (0-2.5); DIFF IND NO; EOSINOPHIL# 0.1 X10e3 (0-0.7); HEMATOCRIT 30.4 % (38.0-50.0); HEMOGLOBIN 9.9 gm/dL (13.0-16.0); LYMPHOCYTE# 1.2 X10e3 (1.0-3.5); LYMPHOCYTE% 9.4 % (17.0-45.0); MEAN CELL VOLUME 95.3 FL (83-96); MEAN CORPUSCULAR HEMOGLOBIN 30.9 PG (28-34); MEAN CORPUSCULAR HGB CONC 32.4 g/dL (30-36); MEAN PLATELET VOLUME 7.7 FL (6.5-11.5); MONOCYTE# 1.7 X10e3 (0-1.0); MONOCYTE% 13.3 % (3.0-12.0); NEUTROPHIL# 9.6 X10e3 (1.5-7.1); NEUTROPHIL% 76.1 % (40-75); PLATELET COUNT 324 X10e3 (140-420); RED BLOOD COUNT 3.19 X10e (3.90-5.60); RED CELL DISTRIBUTION WIDTH 15.3 % (11.0-15.5); WHITE BLOOD COUNT 12.6 X10e3 (4.0-10.5)
[2016-06-13 07:23] LABS: BUN/CREATININE RATIO 8.18; CALCIUM SERUM 8.3 mg/dL (8.4-10.2); CREATININE SERUM 1.1 mg/dL (0.6-1.4); GLOM FILT RATE Estimated 65.8 mL/min (>60); POTASSIUM 3.6 mmol/L (3.5-5.1)
[2016-06-13 14:51] LABS: URINE APPEARANCE CLEAR; URINE BILIRUBIN NEG (NEG); URINE BLOOD NEG (NEG); URINE COLOR YELLOW; URINE GLUCOSE NEG (NEG); URINE KETONE NEG (NEG); URINE LEUKOCYTE ESTERASE NEG (NEG); URINE NITRATE NEG (NEG); URINE PH 6.5 (5-8); URINE PROTEIN NEG (NEG); URINE SPECIFIC GRAVITY 1.018 (1.003-1.035)
[2016-06-13 14:55] LABS: CULTURE INDICATED? NO
[2016-06-15 06:52] LABS: HEMATOCRIT 27.7 % (38.0-50.0); HEMOGLOBIN 9.1 gm/dL (13.0-16.0); MEAN CELL VOLUME 94.9 FL (83-96); MEAN CORPUSCULAR HEMOGLOBIN 31.2 PG (28-34); MEAN CORPUSCULAR HGB CONC 32.9 g/dL (30-36); RED BLOOD COUNT 2.92 X10e (3.90-5.60); RED CELL DISTRIBUTION WIDTH 15.6 % (11.0-15.5); WHITE BLOOD COUNT 7.8 X10e3 (4.0-10.5)
[2016-06-15 07:36] LABS: BUN/CREATININE RATIO 8.88; CALCIUM SERUM 8.3 mg/dL (8.4-10.2); CREATININE SERUM 0.9 mg/dL (0.6-1.4); GLOM FILT RATE Estimated 83.8 mL/min (>60); POTASSIUM 3.6 mmol/L (3.5-5.1)
[2016-06-16 08:55] LABS: HEMATOCRIT 29.8 % (38.0-50.0); HEMOGLOBIN 9.8 gm/dL (13.0-16.0); MEAN CELL VOLUME 94.9 FL (83-96); MEAN CORPUSCULAR HEMOGLOBIN 31.3 PG (28-34); RED BLOOD COUNT 3.14 X10e (3.90-5.60); RED CELL DISTRIBUTION WIDTH 15.5 % (11.0-15.5); WHITE BLOOD COUNT 7.3 X10e3 (4.0-10.5)
[2016-06-16 09:25] LABS: ALBUMIN SERUM 2.7 g/dL (3.5-5.0); ALKALINE PHOSPHATASE 65 U/L (32-92); ALT (SGPT) 13 U/L (10-40); AMYLASE 10 U/L (0-46); AST (SGOT) 12 U/L (10-42); BILIRUBIN,TOTAL 0.7 mg/dL (0.2-2.0); BLOOD UREA NITROGEN 8 mg/dL (9-23); CALCIUM SERUM 8.6 mg/dL (8.4-10.2); CARBON DIOXIDE 27 mmol/L (22-31); CHLORIDE 101 mmol/L (100-111); GLOM FILT RATE Estimated 73.8 mL/min (>60); GLUCOSE FASTING 123 mg/dL (70-110); LIPASE <10 U/L (22-51); POTASSIUM 3.7 mmol/L (3.5-5.1); PROTEIN TOTAL SERUM 6.2 g/dL (6.0-8.3); SODIUM 137 mmol/L (135-145)
[2016-06-18 05:13] LABS: HEMATOCRIT 28.5 % (38.0-50.0); HEMOGLOBIN 9.3 gm/dL (13.0-16.0); MEAN CELL VOLUME 93.4 FL (83-96); MEAN CORPUSCULAR HEMOGLOBIN 30.6 PG (28-34); MEAN CORPUSCULAR HGB CONC 32.8 g/dL (30-36); MEAN PLATELET VOLUME 7.5 FL (6.5-11.5); RED BLOOD COUNT 3.05 X10e (3.90-5.60); RED CELL DISTRIBUTION WIDTH 15.3 % (11.0-15.5); WHITE BLOOD COUNT 5.8 X10e3 (4.0-10.5)
[2016-06-18 05:42] LABS: ALBUMIN SERUM 2.6 g/dL (3.5-5.0); BILIRUBIN,TOTAL 0.6 mg/dL (0.2-2.0); BUN/CREATININE RATIO 7.27; CALCIUM SERUM 8.6 mg/dL (8.4-10.2); CREATININE SERUM 1.1 mg/dL (0.6-1.4); GLOM FILT RATE Estimated 65.8 mL/min (>60); POTASSIUM 3.6 mmol/L (3.5-5.1); PROTEIN TOTAL SERUM 6.1 g/dL (6.0-8.3)
[2016-06-19 09:28] LABS: HEMATOCRIT 28.7 % (38.0-50.0); HEMOGLOBIN 9.6 gm/dL (13.0-16.0); MEAN CELL VOLUME 93.9 FL (83-96); MEAN CORPUSCULAR HEMOGLOBIN 31.6 PG (28-34); MEAN CORPUSCULAR HGB CONC 33.6 g/dL (30-36); MEAN PLATELET VOLUME 7.8 FL (6.5-11.5); RED BLOOD COUNT 3.05 X10e (3.90-5.60); RED CELL DISTRIBUTION WIDTH 15.5 % (11.0-15.5); WHITE BLOOD COUNT 4.8 X10e3 (4.0-10.5)
[2016-06-20] MEDS ORDERED: HYDROCODON-ACE1 EAC9 PO (07:30)
== END 2016-06-20 09:04 | disposition home or self-care (01) | DRG 862 ==
LOC: CED 16:04 → CEDOF 20:49 → C2A 06-13 00:39
PROVIDERS: Emergency Medicine; Internal Medicine Gastroenterology; Specialist; Surgery
PROC: 0DB68ZX Excision of Stomach, Via Natural or Artificial Opening Endoscopic, Diagnostic (ICD-10-PCS; principal; 2016-06-15 15:03)
DX: T81.4XXA Infection following a procedure, initial encounter (principal); K65.1 Peritoneal abscess; K56.7 Ileus, unspecified; I48.0 Paroxysmal atrial fibrillation; I08.1 Rheumatic disorders of both mitral and tricuspid valves; K86.1 Other chronic pancreatitis; I10 Essential (primary) hypertension; I25.10 Atherosclerotic heart disease of native coronary artery without angina pectoris; Z90.49 Acquired absence of other specified parts of digestive tract; Z88.6 Allergy status to analgesic agent; Z88.0 Allergy status to penicillin; F17.210 Nicotine dependence, cigarettes, uncomplicated; K59.00 Constipation, unspecified; K29.50 Unspecified chronic gastritis without bleeding; K29.80 Duodenitis without bleeding; N40.0 Benign prostatic hyperplasia without lower urinary tract symptoms
CPT/HCPCS: 36415; 74176; 74177; 80048; 80053; 80076; 81003; 82150; 83690; 83735; 85025; 85027; 87040; 87077; 96365; 96367; 96375; 96376; 99285; C9113; J0696; J1650; J2270; J2405; J2550; J2765; Q9967

== ENCOUNTER 2016-06-24 14:08 | Inpatient (IN) | payer MEDICARE, BC ==
--- NOTE | ~2016-06-24 | CR84 ---
[facility] A Service [facility] RADIOLOGY TEXT RESULTS PATIENT: TELLO JORDAN LOCATION: [facility] : 41 UNIT #: [id number] AGE: [address]: Zaid Resendiz MD SEX: M ORDER DR: [id number] [id number] [place], [place] [address] [id number] I MR#: [id number] Acc #: [id number] NAME: TELLO JORDAN : 1940 SEX: M STUDY DATE/TIME: 06/26/2016 17:33 UNIT: [facility] ROOM: 242 STUDY DESCRIPTION: CR ERCP Biliary and Pancr SI Attending Physician: Zaid Resendiz M.D. Ordering Physician: Nabor Robles M.D. Primary Care Physician: Carl Dueñas M.D. MEDICAL IMAGING REPORT This report is preliminary unless electronic signature is present EXAM ERCP. HISTORY Distal common bile duct stricture. Stent removal. FLUOROSCOPY TIME 39 seconds. FINDINGS 3 intraoperative fluoroscopic spot films were obtained during the ERCP procedure performed by the attending endoscopist. Injection of the common bile duct demonstrates moderate to moderately severe tapered stricture of the distal common bile duct over a length close to 2 cm. Air bubbles, stones or debris in the common hepatic and proximal common bile ducts. Only a small amount of contrast was injected into the central intrahepatic ducts which appear normal in caliber. No pancreatic duct contrast injection. Cholecystectomy. IMPRESSION 1. Moderate to moderately severe tapered stricture of the distal common bile duct over a length close to 2 cm with filling defects in the common hepatic duct and proximal common bile duct which could be air bubbles, stones or debris. 2. The partly visualized central intrahepatic ducts are normal in caliber. Dictated by... Juan Ray M.D. THIS IS AN ELECTRONICALLY VERIFIED REPORT [facility] A Service of [facility] RADIOLOGY TEXT RESULTS PATIENT: TELLO JORDAN LOCATION: [facility] : 41 UNIT #: [id number] AGE: [address]: Zaid Resendiz MD SEX: M ORDER DR: Juan Ray M.D. at 06/26/2016 10:30 PM MCKENZIEL/eden TD: 06/26/2016 21:30 JOB #: [id number] MEDICAL IMAGING REPORT Page 1 of 1 COPY
--- NOTE | ~2016-06-24 | CR2 ---
[facility] A Service [facility] RADIOLOGY TEXT RESULTS PATIENT: TELLO JORDAN LOCATION: [facility] 242-01 : 41 UNIT #: [id number] AGE: [address]: Zaid Resendiz MD SEX: M ORDER DR: [id number] [facility] [address] [facility]. [place], [place] [address] [id number] I MR#: [id number] Acc #: [id number] NAME: TELLO JORDAN. : 1940 SEX: M STUDY DATE/TIME: 06/24/2016 17:29 UNIT: [facility] ROOM: [facility] STUDY DESCRIPTION: CR Abdomen Acute Series Attending Physician: Zaid Resendiz M.D. Ordering Physician: Zaid Resendiz M.D. Primary Care Physician: Carl Dueñas M.D. MEDICAL IMAGING REPORT This report is preliminary unless electronic signature is present EXAM Acute abdominal series 06/24/2016 HISTORY Flank pain. Pain left ribs in abdomen; nausea and vomiting began 1 month ago. No known injury. TECHNIQUE AP radiograph of the chest is presented with supine and upright radiographs of the abdomen and pelvis. COMPARISON Comparison to abdominal radiographs 05/30/2016, CT abdomen and pelvis 06/17/2016, and chest radiograph 11/29/2014. FINDINGS Chest radiograph shows degenerative changes in the spine. No clearly acute bony abnormality. Please see dedicated rib series for further assessment. Heart upper limits of normal in size to mildly enlarged. Stable. Mildly tortuous descending thoracic aorta. The lungs are well inflated. There is no indication of acute infectious or inflammatory disease, pleural effusion or pneumothorax. No suspicious nodule. There is a common bile duct stent in place, unchanged in appearance from the recent CT abdomen and pelvis. Prior cholecystectomy. The bowel gas pattern is unremarkable. There is no evidence of small bowel or colonic dilatation. No free air. Multilevel degenerative changes in the spine. Moderate to marked joint space narrowing, left hip. No acute-appearing bony abnormality. Dictated by... [facility] A Service [facility] RADIOLOGY TEXT RESULTS PATIENT: TELLO JORDAN LOCATION: [place] [address] : 41 UNIT #: [id number] AGE: [address]: Zaid Resendiz MD SEX: M ORDER DR: Obed Taylor M.D. THIS IS AN ELECTRONICALLY VERIFIED REPORT Obed Taylor M.D. at 07/01/2016 11:06 PM KAMRYN/debbie TD: 06/24/2016 19:11 JOB #: [id number] MEDICAL IMAGING REPORT Page 1 of 1 COPY
--- NOTE | ~2016-06-24 | CR236 ---
[facility] A Service of [facility] RADIOLOGY TEXT RESULTS PATIENT: TELLO JORDAN LOCATION: [facility] 242-01 : 41 UNIT #: [id number] AGE: [address]: Zaid Resendiz MD SEX: M ORDER DR: [id number] [facility] [address]. [place], [place] [address] [id number] I MR#: [id number] Acc #: [id number] NAME: TELLO JORDAN : 1940 SEX: M STUDY DATE/TIME: 06/26/2016 12:39 UNIT: [facility] ROOM: [facility] STUDY DESCRIPTION: CR Small Bowel Sbft W Films Attending Physician: Zaid Resendiz M.D. Ordering Physician: Nabor Robles M.D. Primary Care Physician: Carl Dueñas M.D. MEDICAL IMAGING REPORT This report is preliminary unless electronic signature is present EXAM Small bowel follow-through 06/26/2016 INDICATION Nausea, vomiting, abdominal pain for the last 3 weeks. Recent gallbladder removal. FINDINGS School [employer] image demonstrates some excreted IV contrast in the urinary bladder from the patient's previous CT, presumably. There is a common bile duct stent in place, there are cholecystectomy clips. Bowel gas pattern is normal. Patient ingested oral barium. Transit time through the small bowel is within normal limits. Contrast is into the colon within about 2 hours. Small bowel is normal in caliber. There is no bowel wall thickening. No evidence of obstruction. The terminal ileum is normal. Fluoro time is 0.7 minutes. 19 total images were obtained. IMPRESSION Normal small bowel follow-through. Dictated by... Neto Zurita Jr., M.D. THIS IS AN ELECTRONICALLY VERIFIED REPORT Neto Zurita Jr., M.D. at 06/26/2016 4:48 PM EVIE/steve TD: 06/26/2016 13:55 JOB #: [id number] MEDICAL IMAGING REPORT Page 1 of 1 COPY
--- NOTE | ~2016-06-24 | CR210 ---
[facility] A Service of [facility] RADIOLOGY TEXT RESULTS PATIENT: TELLO JORDAN LOCATION: [facility] [address] : 41 UNIT #: [id number] AGE: [address]: Zaid Resendiz MD SEX: M ORDER DR: [id number] [facility] [address] [facility] [place] [facility]. [place], [place] [address] [id number] I MR#: [id number] Acc #: [id number] NAME: TELLO JORDAN. : 1940 SEX: M STUDY DATE/TIME: 06/24/2016 17:25 UNIT: [facility] ROOM: [facility] STUDY DESCRIPTION: CR Ribs Uni 2 View W PA Ch Lt Attending Physician: Zaid Resendiz M.D. Ordering Physician: Zaid Resendiz M.D. Primary Care Physician: aCrl Dueñas M.D. MEDICAL IMAGING REPORT This report is preliminary unless electronic signature is present EXAM Left rib series with PA chest INDICATIONS Left rib pain for 1 month COMPARISON 12/04/2014 FINDINGS No evidence of displaced rib fracture. No pneumothorax. No acute infiltrate in the lungs. IMPRESSION No evidence of displaced rib fracture. Dictated by... Anders Stovall M.D. THIS IS AN ELECTRONICALLY VERIFIED REPORT Anders Stovall M.D. at 06/25/2016 7:55 AM ARS/to TD: 06/24/2016 18:52 JOB #: [id number] MEDICAL IMAGING REPORT Page 1 of 1 COPY
--- NOTE | ~2016-06-24 | CO ---
Unit #: [id number] #: [id number] Patient: TELLO MEEK [id number] [address] [address] [id number] I MR#: [id number] NAME: TELLO MEEK. ROOM: 242 Age: 75 Sex: M Admission Date: 06/24/2016 : 1940 Attending Physician: Zaid Resendiz M.D. Primary Care Physician: Carl Dueñas M.D. Consultation Date: 06/24/2016 CONSULTATION REPORT REVISED RPORT REASON FOR CONSULTATION 1. Nausea and vomiting. 2. Left lower rib cage pain. HISTORY OF PRESENT ILLNESS Thank you very much for asking us to see Mr. Meek. He is a 75-year-old, white male whose recent past history is remarkable for laparoscopic cholecystectomy in late May [address] Bull. This was followed by ERCP and a biliary stent. He subsequently had upper endoscopy performed by Dr. Robles again on 06/15/16 and was found to have duodenitis and gastritis. He was discharged home 3-4 days ago. Since he has been home, he has had nausea and vomiting whenever he eats. He has had difficulty keeping anything down. He denies any GI bleeding. He has had no hematemesis or coffee-ground emesis. He has had several normal bowel movements. No GI bleeding from below. No or pulmonary symptoms. He has also had significant left lower rib pain, but he has had that for several weeks. He has no shortness of breath. ALLERGIES Voltaren, salicylates, and aspirin. MEDICATIONS Please see med rec sheet. PAST SURGICAL HISTORY Right rotator cuff surgery, right knee surgery, right elbow repair, laparoscopic cholecystectomy, and ERCP with stent placement. PAST MEDICAL HISTORY Atrial fibrillation and hypertension. SOCIAL HISTORY Positive for tobacco and alcohol use. REVIEW OF SYSTEMS Negative, except for above. FAMILY HISTORY Noncontributory. IMMUNIZATION STATUS Unknown. Unit #: [id number] #: [id number] Patient: TELLO MEEK PHYSICAL EXAMINATION GENERAL APPEARANCE: Well developed, well nourished, white male in no apparent distress. Awake, alert, and oriented x3. VITAL SIGNS: Currently, his temperature is 98.2, pulse 56, respirations 22, and blood pressure 156/73. NECK: Supple. No thyromegaly or adenopathy. BACK: No CVA or spinous tenderness; however, with palpation of the left lower rib cage, there is a very specific area that is significantly tender. ABDOMEN: Mildly distended, soft, and moderately tender. No rebound, peritoneal signs, or masses. EXTREMITIES: No calf tenderness. No erythema, but he does have some edema of his lower extremities. DIAGNOSTIC STUDIES LABORATORY: Studies reveal the patient to have a CMP that shows normal liver function studies, amylase, and lipase. Patient's white count is 7.2, hemoglobin 9.9, and hematocrit of 30. The hemoglobin is higher than when he was discharged home. IMPRESSION This is a 75-year-old, white male with persistent nausea and vomiting and left lower rib pain. We have explained to the patient that we feel the need to be admitted for IV fluids. We will check an abdominal x-ray series as well as rib x-rays. Will add Protonix. He may need repeat upper endoscopy or possibly even small bowel followthrough or repeat CT scan. All of this has been fully explained to the patient in detail. The patient understands and requested we proceed with the current treatment plan. Dictated by... Gala Santana/durga TD: 06/25/2016 06:13 JOB #: [id number] CONSULTATION REPORT Page 1 of 1 X Zaid Resendiz MD X CONSULTATION REPORT
--- NOTE | ~2016-06-24 | CO ---
Unit #: [id number] #: [id number] Patient: TELLO MEEK [id number] [address] [place], [place] [address] [id number] I MR#: [id number] NAME: TELLO MEEK. ROOM: 242 Age: 75 Sex: M Admission Date: 06/24/2016 : 1940 Attending Physician: Zaid Resendiz M.D. Primary Care Physician: Carl Dueñas M.D. Consultation Date: 06/25/2016 CONSULTATION REPORT REASON FOR CONSULTATION Recurrent abdominal pain and nausea in a patient with laparoscopic cholecystectomy. HISTORY OF PRESENT ILLNESS Mr. Meek is a 75-year-old white gentleman, who underwent laparoscopic cholecystectomy. Subsequently, he has had some collection in the pelvis, which has since resolved on antibiotics. The patient has had been admitted multiple times with nausea, vomiting, and abdominal pain which is felt deep down into the pelvic area in the right and left lower quadrant, as well as in the upper abdomen. He has had endoscopies and an ERCP that showed distal common bile duct stricture in the intrapancreatic part of the common bile duct and this was treated by a biliary stent. It is noteworthy the patient has received prolonged multiple antibiotics. He presents at this time also with low-grade temperature of 102.2. He has done this in the past as well. PAST MEDICAL HISTORY Detailed account of past medical history can be found in the previous multiple consultations as mentioned above and this included history of hypertension, paroxysmal atrial fibrillation, tricuspid and mitral regurgitation, coronary artery disease. PAST SURGICAL HISTORY Included cholecystectomy, right elbow repair, and rotator cuff tear surgery. MEDICATIONS Prior to admission were reviewed and included Lopressor, aspirin, Brilinta, and Cordarone. ALLERGIES The patient is allergic to salicylates, Voltaren, penicillin, and aspirin. REVIEW OF SYSTEMS Detailed review of organ systems reveals some weight loss. There is history of low-grade fever, nausea, vomiting, and diffuse abdominal pain. No history of headache, seizures, chest pain, or syncope. No history of cough, expectoration, or hemoptysis. No history of dysuria, hematuria, or pyuria. No history of focal seizures or extremity weakness. Rest of the review of organ systems is unremarkable. FAMILY HISTORY None of colon, pancreatic cancer, or liver disease. Unit #: [id number] #: [id number] Patient: TELLO MEEK PHYSICAL EXAMINATION GENERAL: He appears miserable. VITAL SIGNS: He has low-grade temperature of 102.2, pulse is 72 per minute and regular, respiratory rate is 16, blood pressure 174/64. He weighs 260 pounds, which is close to his baseline weight. HEENT: He has mild pallor. There being no icterus, lymphadenopathy, or peripheral edema. CARDIOVASCULAR: Normal heart sounds. No murmurs on auscultation. LUNGS: Reveals normal breath sounds. Good air entry. ABDOMEN: Soft, there being diffuse tenderness both in left and right lower abdomen as well as in the epigastric area and periumbilical area. In fact, there was diffuse mild tenderness. No rigidity, rebound, or guarding is felt. Liver and spleen are not palpable. Bowel sounds are normal. DIAGNOSTIC STUDIES LABORATORY RESULTS: Shows hemoglobin of 8.8, normal white count. Albumin of 3.0. Urinalysis is negative. IMAGING STUDIES: CT scan shows resolution of the previously seen abscess, and a biliary stent in place. CLINICAL IMPRESSION Not sure as to the source of patient's fever and continued nausea, we will suggest doing a small bowel follow-through to certain that there is no small bowel partial obstruction as the patient is not able to tolerate p.o. diet. In addition, we removed the biliary stent particularly in view of the fact of the patient's running temperature, and has had repeated nausea and admissions to the hospital, it is noteworthy that the patient was to be scheduled to have an outpatient endoscopic ultrasound of the pancreas. This could never be arranged, because he has had repeated admissions in the intervening period. Thank you for asking me to see this gentleman. I appreciate the consult. Dictated by... Gala Seten/gabriella TD: 06/25/2016 23:50 JOB #: [id number] CONSULTATION REPORT Page 1 of 1 X Nabor Robles MD CONSULTATION REPORT
--- NOTE | ~2016-06-24 | DS ---
Unit #: [id number] #: [id number] Patient: TELLO JORDAN [id number] [address] [place], [place] [address] [id number] I MR#: [id number] NAME: TELOL JORDAN. ROOM: 242 Age: Sex: M Admission Date: 06/27/2016 : 1940 Discharge Date: 06/28/2016 Attending Physician: Zaid Resendiz M.D. Primary Care Physician: Carl Dueñas M.D. DISCHARGE SUMMARY DISCHARGE DIAGNOSES Left flank and left back pain of unknown etiology. OPERATIVE PROCEDURES None. DISCHARGE MEDICATIONS Home medications plus Percocet 10 at 1 p.o. q.4 hours p.r.n. pain. HISTORY OF PRESENT ILLNESS AND HOSPITAL COURSE This is a 75-year-old white male who has had a recent history of laparoscopic cholecystectomy a month or so ago, followed by an ERCP with biliary stent. He was scoped by Dr. Robles on June 15 and was noted to have duodenitis and gastritis. He had been home for about four to five days prior to this admission, and now he had some nausea, vomiting, and left flank pain. He was admitted at this time for evaluation. He underwent a series of x-rays to include small bowel followthrough and repeat CT scanning, as well as some rib detail x-rays. All of these were negative. There was no evidence of any renal stones. His urine specimen also was basically negative. Overall, the patient has improved with his pain, although he is not totally asymptomatic. The patient's family does say that he did have back pain long before he had gallbladder surgery. We will go ahead and proceed with letting the patient go home as he does not appear to have any acute surgical issues. He will come back to see us in the office on an as-needed basis. Dr. Robles will also follow in his office. Dictated by... Kenton Peterson M.D. NAM/montse TD: 06/28/2016 21:20 JOB #: [id number] Unit #: [id number] #: [id number] Patient: TELLO JORDAN DISCHARGE SUMMARY Page 1 of 1 X Kenton Peterson MD DISCHARGE SUMMARY
--- NOTE | ~2016-06-24 | OR ---
Unit #: [id number] #: [id number] Patient: TELLO MEEK [id number] [address] [place], [place] [address] [id number] I MR#: [id number] NAME: TELLO MEEK. ROOM: 242 Date of Procedure: 06/26/2016 Admission Date: 06/27/2016 Surgeon: Nabor Robles M.D. : 1940 Attending Physician: Zaid Resendiz M.D. Primary Care Physician: Carl Dueñas M.D. OPERATIVE REPORT PRIMARY CARE PHYSICIAN Carl Dueñas M.D. PREOPERATIVE DIAGNOSES Mr. Meek has undergone laparoscopic cholecystectomy and subsequently, he has had some pelvic abscesses, which have completely resolved based upon most recent CAT scan. In addition, he had a small bowel follow-through earlier today that was completely normal. The patient continues to complain of nausea, vomiting, and rather diffuse abdominal pain as well as back pain. In addition, at the time of cholecystectomy, an intraoperative cholangiogram showed distal common bile duct obstruction and this was demonstrated be a stricture in the intrapancreatic portion of the bile duct. A biliary stent was therefore placed. The purpose of the test today is to remove the biliary stent, so as to see if the patient has the nausea related to stenting. In addition, he also had a temperature of 102 degrees Fahrenheit on presentation. It is noteworthy that the patient also needs endoscopic ultrasound at [facility] and this has not been done as the patient variably comes to hospital within matter of 3 to 4 days after discharge and thus, it has not been able to accomplish and thus, being now admitted to completion endoscopic ultrasound for scheduling reasons. The patient does not have any obvious pancreatic mass on a CAT scan. SEDATION USED MAC. PROCEDURES PERFORMED Endoscopic retrograde cholangiopancreatography and biliary stent removal. POSTOPERATIVE DIAGNOSES Previously placed biliary stent was removed. The contrast cholangiogram still demonstrated a stricture in the intrapancreatic part of common bile duct, but the bile was draining freely. Multiple attempts at cannulation of the pancreatic duct were unsuccessful. The scope and the accessories were then withdrawn. RECOMMENDATIONS We will monitor the patient over the next couple of days and after discharge, an endoscopic ultrasound of the pancreas will be scheduled at [facility] depending on the availability of time and doctors available to the [place] Unit #: [id number] #: [id number] Patient: TELLO MEEK DESCRIPTION OF PROCEDURE Following detailed explanation of potential risks and complications of an ERCP, namely perforation, bleeding, and complication related to sedation, and pancreatitis, the patient was brought to GI lab and laid in the left semiprone position. Sedation using MAC was given. The lateral-viewing duodenoscope was advanced through the oral cavity into the esophagus and advanced into the stomach. Pylorus was intubated in the usual fashion. The scope was advanced in deep descending duodenum. Upon shortening the scope, major papilla and ampulla area were visualized en face. Previously placed biliary stent was seen in normal position. The stent was removed using snare polypectomy and delivered outside. The common bile duct was cannulated using a guidewire and a sphincterotome. Contrast cholangiogram showed again stricture in the distal common bile duct and intrapancreatic part of the CBD. However, because the patient's history of multiple presentations with fever and nausea, it was decided not to place another biliary stent. In addition, we also tried cannulation of the pancreatic duct multiple times without success. The scope and the accessories were then withdrawn. The patient returned to the recovery area. He tolerated the procedure without any postprocedure complications. Dictated by... Gala Steen/gabriella TD: 06/27/2016 05:44 JOB #: [id number] CC: Gala Coombs M.D. Raja M. Kaikaus, M.D. OPERATIVE REPORT Page 1 of 1 X Nabor Robles MD X PROCEDURE OPERATIVE NOTE
--- NOTE | ~2016-06-24 | CT2 ---
[facility] A Service of [facility] & [facility] RADIOLOGY TEXT RESULTS PATIENT: TELLO JORDAN LOCATION: [facility] 242 : 41 UNIT #: [id number] AGE: [address]: Zaid Resendiz MD SEX: M ORDER DR: [id number] [facility] [address] [facility]. [place], [place] [address] [id number] I MR#: [id number] Acc #: [id number] NAME: TELLO JORDAN : 1940 SEX: M STUDY DATE/TIME: 06/25/2016 11:45 UNIT: [facility] ROOM: [facility] STUDY DESCRIPTION: CT Abd and Pelv W Cont Attending Physician: Zaid Resendiz M.D. Ordering Physician: Kenton Peterson M.D. Primary Care Physician: Carl Dueñas M.D. MEDICAL IMAGING REPORT This report is preliminary unless electronic signature is present EXAM CT of the abdomen and pelvis with contrast INDICATION Mid abdominal pain and vomiting since June 22. Recent cholecystectomy. TECHNIQUE CT of the abdomen and pelvis was performed following the administration of IV contrast. Coronal and sagittal reformatted images were obtained. Comparison with 06/17/2016. This CT examination was performed with one or more of the following radiation dose reduction techniques: automatic exposure control, adjustment of mA and/or kV according to patient size, and iterative reconstruction. FINDINGS Stable nodularity in the lung bases. Common bile duct stent. Pneumobilia. Cholecystectomy. The spleen is unremarkable. The adrenal glands and kidneys are unremarkable. There is stable dilatation of the pancreatic duct within the body and tail of the pancreas. There is no evidence of bowel obstruction. There is no free fluid or abscess. PELVIS: No free fluid in the pelvis. Previously noted tiny collection in the pelvis has resolved. No evidence for abscess. Small fat-containing bilateral inguinal hernias. The bone windows demonstrate degenerative changes lumbar spine. IMPRESSION 1. Previously noted small collection in the pelvis has resolved. There is no evidence for abscess on today's study. 2. Stable common bile duct stent and stable dilatation of the main pancreatic duct in the region of the body and the tail of the pancreas. [facility] A Service of [facility] & [facility] RADIOLOGY TEXT RESULTS PATIENT: TELLO JORDAN LOCATION: [place] [address] : 41 UNIT #: [id number] AGE: [address]: Zaid Resendiz MD SEX: M ORDER DR: Dictated by... Anders Stovall M.D. THIS IS AN ELECTRONICALLY VERIFIED REPORT Anders Stovall M.D. at 06/26/2016 4:47 PM RACHEL/steve TD: 06/25/2016 13:36 JOB #: [id number] MEDICAL IMAGING REPORT Page 1 of 1 COPY
[2016-06-24 12:19] LABS: BASOPHIL% 0.3 % (0-2.5); EOSINOPHIL# 0.3 X10e3 (0-0.7); EOSINOPHIL% 3.6 % (0.0-7.0); HEMOGLOBIN 9.9 gm/dL (13.0-16.0); LYMPHOCYTE# 1.2 X10e3 (1.0-3.5); MEAN CELL VOLUME 94.6 FL (83-96); MEAN CORPUSCULAR HEMOGLOBIN 31.2 PG (28-34); MEAN PLATELET VOLUME 7.4 FL (6.5-11.5); MONOCYTE# 0.8 X10e3 (0-1.0); MONOCYTE% 11.7 % (3.0-12.0); NEUTROPHIL# 4.8 X10e3 (1.5-7.1); NEUTROPHIL% 67.4 % (40-75); PLATELET COUNT 201 X10e3 (140-420); RED BLOOD COUNT 3.17 X10e (3.90-5.60); RED CELL DISTRIBUTION WIDTH 16.5 % (11.0-15.5); WHITE BLOOD COUNT 7.2 X10e3 (4.0-10.5)
[2016-06-24 12:24] LABS: DIFF IND NO
[2016-06-24 12:52] LABS: BILIRUBIN, DIRECT 0.2 mg/dL (0.0-0.2); BILIRUBIN,INDIRECT 0.6 mg/dL (0.0-0.9); BILIRUBIN,TOTAL 0.8 mg/dL (0.2-2.0); BUN/CREATININE RATIO 7.5; CALCIUM SERUM 8.6 mg/dL (8.4-10.2); CREATININE SERUM 1.2 mg/dL (0.6-1.4); GLOM FILT RATE Estimated 59.2 mL/min (>60); POTASSIUM 3.4 mmol/L (3.5-5.1); PROTEIN TOTAL SERUM 6.7 g/dL (6.0-8.3)
[~2016-06-24 14:08] MED LIST changes: +AMIODARONE PO; +ASPIRIN81 MG PO
[2016-06-24 14:42] LABS: URINE SOURCE CLEAN CATCH
[2016-06-24 14:51] LABS: URINE APPEARANCE CLEAR; URINE BILIRUBIN NEG (NEG); URINE BLOOD NEG (NEG); URINE COLOR YELLOW; URINE GLUCOSE NEG (NEG); URINE KETONE NEG (NEG); URINE LEUKOCYTE ESTERASE NEG (NEG); URINE NITRATE NEG (NEG); URINE PROTEIN NEG (NEG); URINE SPECIFIC GRAVITY 1.007 (1.003-1.035); URINE UROBILINOGEN 0.2 MG/DL (NEG)
[2016-06-24 14:58] LABS: CULTURE INDICATED? NO
[2016-06-25 05:28] LABS: HEMATOCRIT 26.6 % (38.0-50.0); HEMOGLOBIN 8.8 gm/dL (13.0-16.0); MEAN CELL VOLUME 94.8 FL (83-96); MEAN CORPUSCULAR HEMOGLOBIN 31.2 PG (28-34); MEAN CORPUSCULAR HGB CONC 32.9 g/dL (30-36); MEAN PLATELET VOLUME 7.9 FL (6.5-11.5); RED BLOOD COUNT 2.81 X10e (3.90-5.60); WHITE BLOOD COUNT 6.7 X10e3 (4.0-10.5)
[2016-06-25 05:42] LABS: BUN/CREATININE RATIO 7.5; CALCIUM SERUM 8.1 mg/dL (8.4-10.2); CREATININE SERUM 1.2 mg/dL (0.6-1.4); GLOM FILT RATE Estimated 59.2 mL/min (>60)
[2016-06-26 07:09] LABS: HEMATOCRIT 27.6 % (38.0-50.0); MEAN CELL VOLUME 94.4 FL (83-96); MEAN CORPUSCULAR HEMOGLOBIN 30.9 PG (28-34); MEAN CORPUSCULAR HGB CONC 32.8 g/dL (30-36); MEAN PLATELET VOLUME 7.7 FL (6.5-11.5); RED BLOOD COUNT 2.93 X10e (3.90-5.60); RED CELL DISTRIBUTION WIDTH 17.1 % (11.0-15.5)
[2016-06-26 07:18] LABS: WHITE BLOOD COUNT 13.5 X10e3 (4.0-10.5)
[2016-06-26 07:59] LABS: ALBUMIN SERUM 2.5 g/dL (3.5-5.0); BILIRUBIN,TOTAL 0.8 mg/dL (0.2-2.0); CALCIUM SERUM 8.3 mg/dL (8.4-10.2); CREATININE SERUM 1.3 mg/dL (0.6-1.4); GLOM FILT RATE Estimated 53.8 mL/min (>60); POTASSIUM 3.3 mmol/L (3.5-5.1); PROTEIN TOTAL SERUM 6.1 g/dL (6.0-8.3)
[2016-06-27 05:57] LABS: HEMATOCRIT 25.9 % (38.0-50.0); HEMOGLOBIN 8.6 gm/dL (13.0-16.0); MEAN CELL VOLUME 94.1 FL (83-96); MEAN CORPUSCULAR HEMOGLOBIN 31.4 PG (28-34); MEAN CORPUSCULAR HGB CONC 33.3 g/dL (30-36); MEAN PLATELET VOLUME 7.9 FL (6.5-11.5); RED BLOOD COUNT 2.76 X10e (3.90-5.60)
[2016-06-27 07:01] LABS: ALBUMIN SERUM 2.4 g/dL (3.5-5.0); BILIRUBIN,TOTAL 0.9 mg/dL (0.2-2.0); BUN/CREATININE RATIO 10.9; CALCIUM SERUM 7.9 mg/dL (8.4-10.2); CREATININE SERUM 1.1 mg/dL (0.6-1.4); GLOM FILT RATE Estimated 65.8 mL/min (>60); POTASSIUM 3.1 mmol/L (3.5-5.1); PROTEIN TOTAL SERUM 5.6 g/dL (6.0-8.3)
[2016-06-28] MEDS ORDERED: PERCOCET10 PO (07:36)
== END 2016-06-28 09:33 | disposition home or self-care (01) | DRG 392 ==
LOC: CED 14:08 → CEDOF 15:30 → C2A 06-27 09:45
PROVIDERS: Emergency Medicine; Internal Medicine Gastroenterology; Surgery
PROC: 0FPB8DZ Removal of Intraluminal Device from Hepatobiliary Duct, Via Natural or Artificial Opening Endoscopic (ICD-10-PCS; principal; 2016-06-27)
PROC: BF111ZZ Fluoroscopy of Biliary and Pancreatic Ducts using Low Osmolar Contrast (ICD-10-PCS; 2016-06-27)
DX: R10.9 Unspecified abdominal pain (principal); M54.9 Dorsalgia, unspecified; R11.2 Nausea with vomiting, unspecified; Z90.49 Acquired absence of other specified parts of digestive tract
CPT/HCPCS: 36415; 71101; 74022; 74177; 74250; 74330; 80048; 80053; 80076; 81003; 82150; 83605; 83690; 85025; 85027; 86301; 96374; 99285; C9113; J1885; J2250; J2270; J2405; J2550; Q9967

== ENCOUNTER 2016-06-30 05:24 | Inpatient (IN) | payer MEDICARE, BC ==
--- NOTE | ~2016-06-30 | CO ---
Unit #: [id number] #: [id number] Patient: TELLO MEEK [id number] [address] [place], [place] [address] [id number] I MR#: [id number] NAME: TELLO MEEK. ROOM: 221 Age: 75 Sex: M Admission Date: 06/30/2016 : 1940 Attending Physician: Abbie Lewis M.D. Primary Care Physician: Carl Dueñas M.D. Requesting Physician: Abbie Lewis M.D. Consultation Date: 06/30/2016 CONSULTATION REPORT REASON FOR CONSULTATION Intractable nausea and abdominal pain. HISTORY OF PRESENT ILLNESS This is of several admissions for Ms. Meek, who has been seen multiple times in the recent past. The patient underwent laparoscopic cholecystectomy and subsequently had some collections in the abdomen and pelvis which have since resolved with antibiotics. The patient, however, did have distal common bile duct obstruction with stricture. The brushings from that were negative for any cancer cells. The patient at that time had biliary stent which was stricture into the pancreatic part of the common bile duct. She presents again with low-grade fever as well as diffuse abdominal pain, more in the upper abdomen, along with profound nausea. PAST MEDICAL HISTORY Her past medical history is detailed in the previous medical consultations mentioned above and includes a history of hypertension, paroxysmal atrial fibrillation, tricuspid (1) , coronary artery disease. PAST SURGICAL HISTORY 1. Rotator cuff tear surgery. 2. Right elbow repair. 3. Cholecystectomy. ALLERGIES Sulfasalazine, Lipitor, penicillin, aspirin. ADMISSION MEDICATIONS 1. Lopressor. 2. Aspirin. 3. Brilinta. 4. Cordarone. REVIEW OF SYSTEMS A detailed review of organ systems is significant for some weight loss and profound nausea. There is no vomiting. There is also low-grade fever and diffuse abdominal pain. No history of overt GI bleed in the form of hemoptysis, melena or hematochezia. No history of cough, expectoration. No history of dysuria, hematuria, pyuria, history of focal seizures. The rest of the organ systems are unremarkable. PHYSICAL EXAMINATION GENERAL: The patient is awake, alert and somewhat lethargic. Unit #: [id number] #: [id number] Patient: TELLO MEEK VITALS: Pulse 78 per minute and regular, respiratory rate 18, blood pressure 145/50, temperature 98.8. Oxygen saturation is in the mid 90s on room air. HEENT: He has mild pallor, but no icterus, lymphadenopathy or peripheral edema. LUNGS: Normal breath sounds, good air entry. HEART: Normal heart sounds. No murmurs auscultated. ABDOMEN: Soft, obese and minimally tender in the upper abdomen. No distinct area of any rebound or guarding. Liver and spleen are not palpable. Bowel sounds are normal. DIAGNOSTIC STUDIES LABORATORY: The most significant finding appears to be a very high alkaline phosphatase of 753, whereas previously alkaline phosphatase has been normal. In relation, total bilirubin is also elevated to 4.2, whereas it has always been normal. White blood cell count is normal and hemoglobin is 9.9 with normal with (2) platelet count is also normal. ASSESSMENT The patient does have strictures into the pancreatic part of the common bile duct. Even though we have put a biliary stent and subsequently removed it because of the confusion with the patient coming back with fever after resolution of intractable and prolonged collections in the abdomen following cholecystectomy. I have a strong suspicion that Mr. Meek has a carcinoma of the head of the pancreas, even though there is no tumor seen on the CT scan causing early obstructive jaundice with common bile duct structuring. The patient is, therefore, being arranged to be transferred to [facility] for endoscopic ultrasound and a repeat ERCP. He will likely need a biliary stent. If he is otherwise a surgical candidate, this would be also undertaken by Dr. Bhaskar Mccollum at [facility]. The patient will be transferred sometime later today. Thank you very much for asking me to see this pleasant gentleman. I appreciate the consult. Dictated by... Gala Steen TD: 08/04/2016 08:35 JOB #: [id number] CC: Gala Vargas M.D. Mark T. Winders, M.D. Unit #: [id number] #: [id number] Patient: TELLO MEEK CONSULTATION REPORT Page 1 of 1 X Nabor Robles MD CONSULTATION REPORT
--- NOTE | ~2016-06-30 | DS ---
Unit #: [id number] #: [id number] Patient: TELLO MEEK [id number] [address] [place], [place] [address] [id number] I MR#: [id number] NAME: TELLO MEEK. ROOM: 221 Age: 75 Sex: M Admission Date: 06/30/2016 : 1940 Discharge Date: 07/02/2016 Attending Physician: Abbie Lewis M.D. Primary Care Physician: Carl Dueñas M.D. DISCHARGE SUMMARY PRINCIPAL DIAGNOSES 1. Pancreatic duct obstruction concerning for underlying pancreatic cancer. Biopsy and pancreatic duct brushings are currently pending. 2. Common bile duct stricture, status post stenting. 3. Obstructive jaundice now resolved. 4. Transaminitis secondary to #1 and #2 improving. 5. Normocytic anemia. 6. Recent pancreatitis. 7. Coronary artery disease. Patient had 60% to 70% mid vessel stenosis of the LAD, status post stenting. 8. Paroxysmal atrial fibrillation rate controlled and maintained on anticoagulation. Patient is currently in normal sinus rhythm. 9. Hypertension. 10. Prior history of lung nodules. CONSULTANTS Dr. Robles, gastroenterology. PROCEDURES Endoscopic ultrasound with ERCP on 07/01/[address] Mccollum at [facility]. The patient was found to have complete obstruction of the pancreatic duct near the ampulla, this underwent biopsy and brushings. There is stricture of the intrapancreatic portion of the common bile duct, status post mental stenting. CLINICAL HISTORY AND HOSPITAL COURSE Mr. Meek is a very nice 75-year-old male who presents to the emergency department with right upper quadrant pain and intractable nausea and vomiting. Symptoms had been present for approximately six weeks when patient initially presented with pancreatitis, which was felt to be biliary in origin and patient underwent cholecystectomy with findings of chronic cholecystitis. Following procedure, the patient has presented with recurrent nausea, vomiting and transaminitis and underwent ERCP on 05/27/2016 with placement of common bile duct stent, which was subsequently removed on 06/26/2016. The patient presented back to the hospital with transaminitis and intractable nausea and vomiting. Please refer to H and P for further details. Patient was admitted and placed on IV fluids, antiemetics and pain medication. Dr. Robles was consulted. Ultimately given the plan had been for endoscopic ultrasound at [facility], the patient was transferred to [facility] on 07/01/2016 and underwent endoscopic ultrasound and ERCP with stenting of the common bile duct. Unfortunately endoscopic ultrasound reveals stenosis of the pancreatic duct concerning for underlying Unit #: [id number] #: [id number] Patient: TELLO MEEK A malignancy. Biopsy and brushings are currently pending. Patient did undergo stenting of the common bile duct on 07/01/2016. Today his nausea and vomiting has significant improved as has his abdominal pain. On the day of discharge AST is down to 64, ALT 111, alk phos down to 650 and bilirubin is normal at 2.4. All of these findings have been discussed with Mr. Meek who expressed understanding. The plan is for patient to have an outpatient MRCP on 07/06/2016 and patient will be seen by Dr. Grant Riggs at [facility] who is a surgical oncologist. At that time they will discuss arranging surgical excision of his underlying pancreatic mass. The has been discussed with the patient who expresses understanding and will be discharged home later today, presuming his tolerates some amount of diet. DISCHARGE CONDITION Stable. DISCHARGE STATUS Discharge to home. DISCHARGE MEDICATIONS 1. Amiodarone 100 mg p.o. daily. 2. Metoprolol tartrate 50 mg b.i.d. 3. Wesley 7.5/325 one to two tablets p.o. q.4-6 hours p.r.n. for pain. 4. Percocet 10/325 one tablet p.o. q.4 hours p.r.n. for pain. 5. Brilinta 90 mg b.i.d. DISCHARGE INSTRUCTIONS Patient was instructed to follow a regular diet as he can tolerate. He can increase activity as tolerated. FOLLOWUP Again patient will be contacted by Dr. Tanner office to arrange appointment on Thursday, July 07, 2016. He will have MRCP arranged as an outpatient for Wednesday, July 06, 2016 prior to discharge. Time spent on discharge 37 minutes. Dictated by... Abbie Lewis M.D. ARMIDA/clint TD: 07/03/2016 09:22 JOB #: [id number] DISCHARGE SUMMARY Page 1 of 1 X Abbie Lewis MD DISCHARGE SUMMARY
--- NOTE | ~2016-06-30 | HP ---
Unit #: [id number] #: [id number] Patient: TELLO MEEK [id number] [address] [place], [place] [address] [id number] MR#: [id number] NAME: TELLO MEEK. ROOM: 221 Age: 75 Sex: M Admission Date: 06/30/2016 : 1940 Attending Physician: Abbie Lewis M.D. Primary Care Physician: Carl Dueñas M.D. HISTORY AND PHYSICAL CHIEF COMPLAINT Abdominal pain, intractable nausea. HISTORY OF PRESENT ILLNESS Mr. Meek is a 75-year-old male with a complicated medical history over the last 6 weeks, who presents to the emergency room for the above. The patient was initially admitted to this facility in 05/2016 due to complaints of abdominal pain. He was found to have cholelithiasis and subsequently underwent ERCP on 05/27/2016 with biliary stent placement. On 05/27/2016 he underwent laparoscopic lysis of adhesions and laparoscopic cholecystectomy. He was discharged home on 06/01/2016. The patient has had recurrent emergency room visits since that time with complaints of abdominal pain, nausea and vomiting. Post procedure was also complicated with the development of pelvic abscesses, for which he completed antibiotic therapy and CT scan of the abdomen and pelvis on 06/25/2016 revealed resolution of these abscesses. The patient just underwent removal of biliary stent per Dr. Robles on 06/26/2016. There was still evidence of stricture in the anterior hepatic portion of the bile duct and unfortunately this could not be cannulated per notes. The plan was for the patient to undergo endoscopic ultrasound of the pancreas at [facility]. However, the patient states he developed recurrent abdominal pain yesterday morning, followed by multiple episodes of dry heaving. He denies any diarrhea. In fact, he has been constipated. He denies any hematemesis or any hematochezia. He does endorse abdominal bloating. The pain became so severe the he felt he was becoming lightheaded and, thus, he called EMS. Upon presentation to the emergency department the patient's blood pressure was found to be elevated at 178/81. However, pulse rate, respiratory rate and oxygenation were normal. Examination in the emergency room revealed diffuse abdominal tenderness. Blood work revealed a significant hypokalemia with a potassium of 2.9. The patient's AST, ALT and alkaline phosphatase were all elevated. Lipase was normal. Bilirubin is also elevated at 4.2. Bilirubin was 0.9 on 06/27/2016. The patient has subsequently been admitted for recurrent abdominal pain and transaminitis, likely secondary to recurrent bile duct stricture. PAST MEDICAL HISTORY 1. Recent bile duct and anterior pancreatic bile duct stenosis, status post ERCP, stent placement and subsequent removal. 2. Chronic cholecystitis, status post laparoscopic cholecystectomy on 05/28/2016. 3. Coronary artery disease with unstable angina in 2015. LAD had 60%-70% mid vessel stenosis at that time. Ramus intermedius was a small caliber lesion. Status post stenting times two. Unit #: [id number] #: [id number] Patient: TELLO MEEK 4. Paroxysmal atrial fibrillation, currently in normal sinus rhythm. 5. Hypertension. 6. Prior history of alcohol use. 7. Recent evaluation of lung nodules per Dr. Nieves. It is unclear from records plan to evaluate nodules further. PAST SURGICAL HISTORY 1. Laparoscopic cholecystectomy. ERCP with biliary duct stenting and subsequent removal. 2. Stenting times two to the LAD. 3. Right rotator cuff repair. 4. Left knee surgery. 5. Right elbow surgery. SOCIAL HISTORY The patient recently lost his , approximately four years ago. He did quit smoking cigarettes about 36 years ago. He smokes an occasional cigar. No illicit drug use. No alcohol use. FAMILY HISTORY Significant for coronary artery disease. ALLERGIES Diclofenac, NSAIDs, latex, penicillin, pyrazoles. Aspirin is also listed as an allergy, but I will note the patient is taking it at home. HOME MEDICATIONS 1. Amiodarone 100 mg daily. 2. [place] 7.5/325 mg 1-2 tablets p.o. q.4 h. p.r.n. pain. 3. Lopressor 50 mg b.i.d. 4. Aspirin 81 mg daily. 5. Brilinta 90 mg b.i.d. 6. Percocet 10-325 mg 1 tablet p.o. q.4 h. p.r.n. pain. Of note, the patient informed nursing he is not taking Lortab or Percocet due to constipation. REVIEW OF SYSTEMS Abdominal pain, bloating, dry heaves and constipation as noted. He denies any chest pain, palpitations, orthopnea, shortness of breath, falls, difficulty urinating, hematuria. Otherwise 10-point review of systems was reviewed and is negative. PHYSICAL EXAMINATION GENERAL: The patient is awake and alert. He is oriented times three. VITALS: Temperature 98.8, blood pressure 145/53, pulse rate 71, respiratory rate 16, oxygen saturation in the high 90s on room air. HEENT: Pupils equally round and reactive to light bilaterally. Scleral icterus is noted. Mild conjunctival pallor. Oropharynx with dry mucous membranes. No erythema or exudate. NECK: Supple. No lymphadenopathy. No thyromegaly. No jugular venous distension. LUNGS: Clear to auscultation bilaterally without wheezes, rhonchi or crackles. HEART: Regular rate and rhythm without murmur, rub or gallop. ABDOMEN: Soft, diffusely tender, but greatest in the right upper quadrant, epigastric region. There is no guarding or rebound. It is mildly distended. No appreciable hepatosplenomegaly. EXTREMITIES: No cyanosis, clubbing or edema. Pedal pulses 2/4. Unit #: [id number] #: [id number] Patient: TELLO MEEK SKIN: Warm and moist without rash. NEUROLOGIC: Cranial nerves II through XII are intact. Sensation, strength and deep tendon reflexes are grossly normal. MUSCULOSKELETAL: No significant joint erythema or abnormality noted on exam. PSYCHIATRIC: Alert and oriented times three. No suicidal or homicidal ideation. DIAGNOSTIC STUDIES LABORATORY: Blood work done today reveals a white blood cell count of 6.4, hemoglobin 9.9 (up from hemoglobin of 8.6 three days ago), platelet count 167,000, differential shows 18% monocytes. CMP reveals a sodium of 137, potassium 2.9, chloride 103, bicarb 26, BUN 5, creatinine 0.9, glucose 118. AST elevated at 196, ALT 171, alkaline phosphatase 753. Bilirubin is 4.2 and is primarily direct at 2.9. Albumin is low at 2.8. Lipase 13, amylase 8. I will note on 06/27/2016 the patient's AST and ALT were 42 and 27 respectively and alkaline phosphatase was 188. Magnesium today is 1.9. ASSESSMENT 1. Recurrent abdominal pain with associated transaminitis, concerning for recurrent biliary duct stenosis with obstruction. 2. Obstructive jaundice. 3. Significant hypokalemia. 4. Normocytic anemia. 5. Coronary artery disease. 6. Paroxysmal atrial fibrillation, currently maintained in normal sinus rhythm. 7. Elevated blood pressure. 8. Recent intraabdominal abscesses following laparoscopic cholecystectomy, resolved. 9. Moderate protein malnutrition. PLAN 1. Will admit the patient to medical/surgical. 2. Will consult Dr. Robles, given the patient needs repeat ERCP and likely biliary stent placement. Will also need to proceed with endoscopic ultrasound at [facility] as previously determined. 3. Will replace potassium with potassium/magnesium protocol. Will also place on IV fluids containing potassium and follow levels closely. 4. Will check iron and vitamin B12 levels in regard to the patient's anemia. 5. Will continue home medication in regard to the patient's coronary artery disease with the exception of his aspirin and Brilinta, which I will hold until after ERCP. 6. Will monitor heart rhythm, but again the patient is in normal sinus rhythm currently. 7. MiraLAX on a p.r.n. basis for constipation. 8. SCDs for DVT prophylaxis. Dictated by Abbie Lewis M.D. ARMIDA/tere TD: 06/30/2016 11:22 JOB #: [id number] Unit #: [id number] #: [id number] Patient: TELLO MEEK Ananya HISTORY AND PHYSICAL Page 1 of 1 X Abbie Lewis MD X HISTORY AND PHYSICAL
[2016-06-30 05:04] LABS: BASOPHIL% 0.2 % (0-2.5); EOSINOPHIL# 0.2 X10e3 (0-0.7); EOSINOPHIL% 2.6 % (0.0-7.0); HEMATOCRIT 30.2 % (38.0-50.0); HEMOGLOBIN 9.9 gm/dL (13.0-16.0); LYMPHOCYTE% 15.9 % (17.0-45.0); MEAN CELL VOLUME 94.1 FL (83-96); MEAN CORPUSCULAR HEMOGLOBIN 30.9 PG (28-34); MEAN CORPUSCULAR HGB CONC 32.9 g/dL (30-36); MEAN PLATELET VOLUME 8.3 FL (6.5-11.5); MONOCYTE# 1.2 X10e3 (0-1.0); MONOCYTE% 18.2 % (3.0-12.0); NEUTROPHIL# 4.1 X10e3 (1.5-7.1); NEUTROPHIL% 63.1 % (40-75); PLATELET COUNT 167 X10e3 (140-420); RED BLOOD COUNT 3.21 X10e (3.90-5.60); RED CELL DISTRIBUTION WIDTH 17.3 % (11.0-15.5); WHITE BLOOD COUNT 6.4 X10e3 (4.0-10.5)
[2016-06-30 05:07] LABS: DIFF IND NO
[~2016-06-30 05:24] MED LIST changes: +PERCOCET10 PO
[2016-06-30 06:01] LABS: ALBUMIN SERUM 2.8 g/dL (3.5-5.0); BILIRUBIN, DIRECT 2.9 mg/dL (0.0-0.2); BILIRUBIN,INDIRECT 1.3 mg/dL (0.0-0.9); BILIRUBIN,TOTAL 4.2 mg/dL (0.2-2.0); BUN/CREATININE RATIO 5.55; CALCIUM SERUM 8.5 mg/dL (8.4-10.2); CREATININE SERUM 0.9 mg/dL (0.6-1.4); GLOM FILT RATE Estimated 83.8 mL/min (>60); PROTEIN TOTAL SERUM 6.7 g/dL (6.0-8.3)
[2016-06-30 06:09] LABS: POTASSIUM 2.9 mmol/L (3.5-5.1)
[2016-06-30 12:08] LABS: IRON SERUM 41 ug/dL (45-182); TOTAL IRON BINDING CAPACITY 237 ug/dL (252-460); TRANSFERRIN 170 mg/dL (180-329); TRANSFERRIN SATURATION 17 % (20-50)
[2016-06-30 22:07] LABS: MAGNESIUM 2.2 mg/dL (1.6-3.0)
[2016-06-30 22:09] LABS: POTASSIUM 2.9 mmol/L (3.5-5.1)
[2016-07-01 05:25] LABS: HEMATOCRIT 27.1 % (38.0-50.0); MEAN CELL VOLUME 93.5 FL (83-96); MEAN CORPUSCULAR HEMOGLOBIN 31.1 PG (28-34); MEAN CORPUSCULAR HGB CONC 33.3 g/dL (30-36); MEAN PLATELET VOLUME 8.3 FL (6.5-11.5); RED BLOOD COUNT 2.9 X10e (3.90-5.60); RED CELL DISTRIBUTION WIDTH 17.2 % (11.0-15.5)
[2016-07-01 06:17] LABS: ALBUMIN SERUM 2.5 g/dL (3.5-5.0); ALKALINE PHOSPHATASE 750 U/L (32-92); ALT (SGPT) 149 U/L (10-40); AST (SGOT) 137 U/L (10-42); BILIRUBIN,TOTAL 6.1 mg/dL (0.2-2.0); BLOOD UREA NITROGEN <5 mg/dL (9-23); BUN/CREATININE RATIO 6.25; CALCIUM SERUM 8.1 mg/dL (8.4-10.2); CARBON DIOXIDE 24 mmol/L (22-31); CHLORIDE 107 mmol/L (100-111); CREATININE SERUM 0.8 mg/dL (0.6-1.4); GLUCOSE FASTING 128 mg/dL (70-110); POTASSIUM 3.5 mmol/L (3.5-5.1); PROTEIN TOTAL SERUM 5.6 g/dL (6.0-8.3); SODIUM 138 mmol/L (135-145)
[2016-07-02 03:47] LABS: HEMATOCRIT 27.1 % (38.0-50.0); HEMOGLOBIN 8.9 gm/dL (13.0-16.0); MEAN CELL VOLUME 94.2 FL (83-96); MEAN PLATELET VOLUME 8.5 FL (6.5-11.5); RED BLOOD COUNT 2.87 X10e (3.90-5.60); RED CELL DISTRIBUTION WIDTH 17.5 % (11.0-15.5); WHITE BLOOD COUNT 4.4 X10e3 (4.0-10.5)
[2016-07-02 06:30] LABS: ALBUMIN SERUM 2.4 g/dL (3.5-5.0); BUN/CREATININE RATIO 5.55; CALCIUM SERUM 8.1 mg/dL (8.4-10.2); CREATININE SERUM 0.9 mg/dL (0.6-1.4); GLOM FILT RATE Estimated 83.8 mL/min (>60); MAGNESIUM 1.9 mg/dL (1.6-3.0); PROTEIN TOTAL SERUM 5.7 g/dL (6.0-8.3)
[2016-07-02 06:33] LABS: BILIRUBIN,TOTAL 2.4 mg/dL (0.2-2.0)
== END 2016-07-02 17:52 | disposition home or self-care (01) | DRG 438 ==
LOC: CED 05:24 → CEDOF 07:00 → C2A 09:34
PROVIDERS: Internal Medicine; Nurse Practitioner Family
PROC: 0FBD8ZX Excision of Pancreatic Duct, Via Natural or Artificial Opening Endoscopic, Diagnostic (ICD-10-PCS; principal; 2016-07-01)
PROC: 0FB98ZX Excision of Common Bile Duct, Via Natural or Artificial Opening Endoscopic, Diagnostic (ICD-10-PCS; 2016-07-01)
PROC: 0F798DZ Dilation of Common Bile Duct with Intraluminal Device, Via Natural or Artificial Opening Endoscopic (ICD-10-PCS; 2016-07-01)
DX: K86.89 Other specified diseases of pancreas (principal); K83.1 Obstruction of bile duct; E44.0 Moderate protein-calorie malnutrition; D64.9 Anemia, unspecified; I25.10 Atherosclerotic heart disease of native coronary artery without angina pectoris; R74.0 Nonspecific elevation of levels of transaminase and lactic acid dehydrogenase [LDH]; I10 Essential (primary) hypertension; E87.6 Hypokalemia; Z87.891 Personal history of nicotine dependence; Z79.82 Long term (current) use of aspirin; K59.00 Constipation, unspecified; Z95.5 Presence of coronary angioplasty implant and graft; K29.80 Duodenitis without bleeding; R19.09 Other intra-abdominal and pelvic swelling, mass and lump
CPT/HCPCS: 36415; 80048; 80053; 80076; 82150; 82607; 83540; 83550; 83690; 83735; 84132; 85025; 85027; 86301; 96374; 96375; 99284; J1170; J2270; J2405; J2765; J3475

== ENCOUNTER 2016-07-03 22:04 | Emergency (ER) | payer MEDICARE, BC ==
[2016-07-03 19:19] LABS: URINE SOURCE CLEAN CATCH
[2016-07-03 19:25] LABS: URINE APPEARANCE CLEAR; URINE BILIRUBIN NEG (NEG); URINE BLOOD NEG (NEG); URINE COLOR YELLOW; URINE GLUCOSE NEG (NEG); URINE KETONE NEG (NEG); URINE LEUKOCYTE ESTERASE NEG (NEG); URINE NITRATE NEG (NEG); URINE PROTEIN NEG (NEG); URINE SPECIFIC GRAVITY 1.011 (1.003-1.035); URINE UROBILINOGEN 0.2 MG/DL (NEG)
[2016-07-03 19:30] LABS: CULTURE INDICATED? NO
[2016-07-03 20:14] LABS: BASOPHIL% 0.3 % (0-2.5); EOSINOPHIL# 0.2 X10e3 (0-0.7); EOSINOPHIL% 2.3 % (0.0-7.0); HEMOGLOBIN 10.1 gm/dL (13.0-16.0); LYMPHOCYTE# 1.5 X10e3 (1.0-3.5); LYMPHOCYTE% 17.7 % (17.0-45.0); MEAN CORPUSCULAR HGB CONC 32.6 g/dL (30-36); MEAN PLATELET VOLUME 8.5 FL (6.5-11.5); MONOCYTE% 12.4 % (3.0-12.0); NEUTROPHIL# 5.6 X10e3 (1.5-7.1); NEUTROPHIL% 67.3 % (40-75); PLATELET COUNT 200 X10e3 (140-420); RED BLOOD COUNT 3.26 X10e (3.90-5.60); RED CELL DISTRIBUTION WIDTH 18.1 % (11.0-15.5)
[2016-07-03 20:27] LABS: DIFF IND NO; WHITE BLOOD COUNT 8.3 X10e3 (4.0-10.5)
[2016-07-03 20:41] LABS: ALBUMIN SERUM 2.9 g/dL (3.5-5.0); BILIRUBIN, DIRECT 0.7 mg/dL (0.0-0.2); BILIRUBIN,INDIRECT 1.4 mg/dL (0.0-0.9); BILIRUBIN,TOTAL 2.1 mg/dL (0.2-2.0); CALCIUM SERUM 8.4 mg/dL (8.4-10.2); GLOM FILT RATE Estimated 73.8 mL/min (>60); POTASSIUM 3.1 mmol/L (3.5-5.1); PROTEIN TOTAL SERUM 6.7 g/dL (6.0-8.3)
== END 2016-07-04 01:35 ==
LOC: CED 22:04
DX: K85.90 Acute pancreatitis without necrosis or infection, unspecified (principal); I48.91 Unspecified atrial fibrillation; I10 Essential (primary) hypertension; F17.200 Nicotine dependence, unspecified, uncomplicated
CPT/HCPCS: 36415; 80048; 80076; 81003; 83690; 85025; 96361; 96374; 96375; 96376; 99282; 99284; J1170; J2765

== ENCOUNTER 2016-09-04 06:05 | Inpatient (IN) | payer MEDICARE, BC ==
--- NOTE | ~2016-09-04 | A ---
[facility] Nutrition Therapy DATE: 09/05/16 Patient: TELLO JORDAN Physician: CIRO Address: [address] Room/Bed: [address] [place] [address], Zip: [place] [address] Admit Date: 09/04/16 Date of : 42 Height: Weight: NUTRITIONAL ASSESSMENT: REASON: CONSULT FOR CONTINUOUS TUBE FEEDS PATIENT ADMITTED FOR PEG PLACEMENT PMH: PANCREATIC CA, CHOLECYSTITIS, CAD, HTN, FAILURE TO THRIVE Anthropometrics: HT: 6'4", WT: 250# (PER FAMILY; NO NEW WT), BMI: 30.4 Labs: 09/05/16- K: 2.6, GLU: 104, BUN: 6, CA: 7.9, ALB: 2.3 Meds: VIT D, NACL, PHENERGAN, CREON, MAG-OX, CELEXA, PROTONIX, ZOFRAN, METHADONE, ROXICODONE, HYDROMORPHONE I/O & Bowel function: 600/10 LBM: 09/04/16 Skin Integrity: SURGICAL SITE - NEW PEG TUBE PLACED 3+ EDEMA TO BLE, 2+ BUE Estimated Nutrition Needs: 20-25KCAL/KG ([id number]) Assessment: PATIENT IS A 75 Y/O MALE ADMITTED FOR A NEW PEG PLACEMENT. PATIENT HAS PANCREATIC CANCER AND HIS FAMILY REPORTS HE HAS NOT BEEN EATING FOR THE LAST [address] ORIGINALLY CONSULTED FOR BOLUS RECOMMENDATIONS, HOWEVER NURSING REPORTS THAT THE PATIENT WAS UNABLE TO TOLERATE 90CC OF HIS BOLUS YESTERDAY AND THAT PATIENT REFUSED HIS OTHER FEEDS. PATIENT'S FAMILY WAS AT BEDSIDE. THEY REPORTED THAT PATIENT'S NAUSEA MAY BE D/T CHANGES IN HIS MEDICATIONS, AND THAT PATIENT'S WEIGHT 3-4 WEEKS AGO WAS 238#. PATIENT HAS HAD A ~40# WEIGHT LOSS OVER THE LAST 3 MONTHS. PATIENT HAS 3+ EDEMA TO BLE AND 2+ TO BUE, WHICH WOULD CAUSE PATIENT'S WEIGHT GAIN. PATIENT IS CURRENTLY NPO AND IS WAITING FOR DISHWASHER PREPARER TO EVALUATE. PATIENT WILL BE GOING TO A LONGTERM FACILITY FOR REHAB AFTER D/C. Dx: INADEQUATE NUTRIENT INTAKE R/T PANCREATIC CA, CURRENT CONDITIONS AEB WEIGHT LOSS AND DECRASED APPETITE, NPO STATUS Intervention: NPO DIET, PEG TUBE PLACEMENT, MEDS/FLUIDS PER MD Monitoring, Evaluation and Goals: 1. INITIATE CONTINUOUS ENTERAL NUTRITION 2. PROVIDE 100% ESTIMATED NUTRIENT NEEDS [facility] Nutrition Therapy DATE: 09/05/16 Patient: TELLO JORDAN Physician: CIRO Address: [address] [facility] Room/Bed: [address] [place] [address], Zip: [place] [address] Admit Date: 09/04/16 Date of : 42 Height: Weight: 3. PREVENT, CORRECT MICRO/MACRO NUTRIENT DEFICIENCIES MONITOR: WEIGHTS, LABS, ELECTROLYTES, I/Os Recommendations: 1. ONCE MEDICALLY FEASIBLE PLEASE BEGIN ALTERNATIVE NUTRITION SUPPORT OF JEVITY 1.5 @ 20ML/HR. ADVANCE 10ML Q 6 HOURS TO A GOAL RATE OF 65ML/HR -PROVIDES: 2340KCAL / 99GM PROTEIN / 1186ML FLUID -ADD FREE WATER FLUSHES OF 200ML Q 4 HOURS OR PER MD ORDERS -ADD PROSTAT QD TO MEET PATIENT'S PROTEIN NEEDS RD TO F/U PER PROTOCOL AND PRN R/T PATIENT SEVERELY COMPROMISED Respectfully, LUISA RIOS, [place], LD [employer] cc: client file
--- NOTE | ~2016-09-04 | HP ---
Unit #: [id number] #: [id number] Patient: TELLO JORDAN [id number] [address] [place], [place] [address] [id number] MR#: [id number] NAME: TELLO JORDAN. ROOM: 47 Age: 75 Sex: M Admission Date: 09/05/2016 : 1940 Attending Physician: Nabor Robles M.D. Primary Care Physician: Carl Dueñas M.D. HISTORY AND PHYSICAL REASON FOR ADMISSION For ensuring the continuation of PEG feeds after PEG placement. Patient has advanced metastatic pancreatic cancer. HISTORY OF PRESENT ILLNESS This gentleman is a 75-year-old white gentleman who was brought in by his son and daughter. Patient has frequent nausea and vomiting, substantial weight loss and extremely poor appetite. He was brought from the rehab center for elective PEG placement. After PEG placement, patient is being admitted to ensure that he is tolerating the PEG feeds without any problem. PAST MEDICAL HISTORY His past medical history is documented in multiple H/Ps in the past and include post cholecystectomy collections of fluid, subsequently found to have distal common bile duct stricture, later on proved to be from pancreatic cancer. He also has a history of hypertension, proximal atrial fibrillation and coronary artery disease. PAST SURGICAL HISTORY Surgeries include a cholecystectomy, rotator cuff repair. MEDICATIONS Medications are listed in the chart and reviewed and include multiple medications including pain medications. ALLERGIES Salicylates, Ultram, penicillin, aspirin. REVIEW OF SYSTEMS A detailed review of organ systems reveals profound weight loss, marked weakness and edema of lower extremities. There is no history of cough, expectoration or hemoptysis and no history of chest pain. no history of dysuria, hematuria or pyuria. There is a history of frequent urination. No history of focal seizures or focal extremity weakness. The patient has generalized weakness. PHYSICAL EXAMINATION GENERAL: On examination he appears quite edematous. VITAL SIGNS: Temperature 98.3, pulse 78 per minute and regular, respiratory rate is 18, blood pressure 137/69. He weighs 240 pounds. Baseline weight has been about 268 pounds in the past. HEENT: He has moderate pallor. There being no icterus or lymphadenopathy. EXTREMITIES: Grade 2 to 3 peripheral edema. Unit #: [id number] #: [id number] Patient: TELLO JORDAN CARDIOVASCULAR: Examination revealed normal heart sounds. No murmurs on auscultation. LUNGS: Revealed bilateral symmetric air entry. ABDOMEN: Soft, nontender. Liver and spleen are not palpable and bowel sounds normal. DIAGNOSTIC STUDIES LABORATORY: Evaluation shows a hemoglobin of 9, his white count is normal, platelet count is 88, BUN and creatinine are normal, potassium is 2.4, LFTs are normal and albumin is 2.3. CLINICAL IMPRESSION The patient has advanced local and metastatic pancreatic cancer. After elective PEG placement will start PEG feeds with Jevity 1.5. Initially bolus is to be tried. If patient is not able to tolerate bolus feeds then continuous feed is to be given. The above plan was discussed with the patient's son and daughter who are at the bedside. Thank you very much for asking me to see this pleasant gentleman. I appreciate the consult. Dictated by Gala Steen/thom TD: 09/07/2016 20:33 JOB #: [id number] HISTORY AND PHYSICAL Page 1 of 1 X Nabor Robles MD HISTORY AND PHYSICAL
--- NOTE | ~2016-09-04 | DS ---
Unit #: [id number] #: [id number] Patient: TELLO MEEK [id number] [address] [address] [id number] I MR#: [id number] NAME: TELLO MEEK. ROOM: 47 Age: 75 Sex: M Admission Date: 09/05/2016 : 1940 Discharge Date: 09/07/2016 Attending Physician: Nabor Robles M.D. Primary Care Physician: Carl Dueñas M.D. DISCHARGE SUMMARY DIAGNOSES 1. Locally invasive and metastatic advanced pancreatic cancer, carcinoma of the head of the pancreas. 2. Common bile duct obstruction status post biliary Wallstent placement. 3. Status post cholecystectomy. 4. Placement of a percutaneous endoscopic gastrostomy tube. This was placed on September 04, 2016 NOTE The patient was an observation admit on the first day and then inpatient for the second day onwards. DISCHARGE MEDICATIONS These included all the preadmission medications except for fentanyl patch. His medications include: 1. Amiodarone 100 mg p.o. via PEG tube daily. 2. Magnesium oxide 400 mg p.o. daily. 3. Celexa 20 mg p.o. daily. 4. Zofran 8 mg p.o. p.r.n. nausea. 5. Phenergan 25 mg p.o. p.r.n. nausea. 6. Ativan 0.5 mg p.o. t.i.d. for nausea or for rest. 7. Lopressor 50 mg p.o. b.i.d. 8. Acidophilus one sachet p.o. daily. 9. Aspirin 81 mg p.o. daily. 10. The Duragesic patch was discontinued during current hospitalization and was not placed. 11. Methadone 10 mg p.o. b.i.d. 12. Protonix 40 mg p.o. daily. 13. DuoNeb 0.5/2.5 mg per 3 mL q.4 h. while awake. 14. Ergocalciferol 50,000 q. four weeks. 15. Oxycodone 20 mg p.o. q.4 h. p.r.n. pain. 16. Potassium chloride 10 mEq p.o. via PEG tube t.i.d. for four days. Prescriptions for oxycodone, methadone and lorazepam were given to the patient prior to discharge. DISCHARGE INSTRUCTIONS PEG feeding instructions with Jevity 1.5 at peak rate of 65 mL per hour and add on pack of ProStat daily plus free water flushes 200 mL q.4 h. plus p.r.n. HOSPITAL COURSE Mr. Meek was admitted for elective PEG placement as patient had lost a Unit #: [id number] #: [id number] Patient: TELLO MEEK A substantial amount of weight, was severely malnourished and was not making much progress with oral intake. The PEG tube was placed without any problem; however, patient was kept for observation to ensure that he tolerates the PEG feed without any problem. He however was extremely weak and tired and fatigued and had frequent nausea and vomiting. This took about 24 hours to settle down and then he tolerated the PEG feeds thereafter. At the time of discharge he was still quite weak, barely able to stand with assistance. He will continue on PEG feeds in the rehab center and then subsequently at home. Patient is a DNR. Dictated by... Gala Steen/thom TD: 09/07/2016 19:30 JOB #: [id number] CC: [facility] So DISCHARGE SUMMARY Page 1 of 1 X Nabor Robles MD DISCHARGE SUMMARY
--- NOTE | ~2016-09-04 | OR ---
Unit #: [id number] #: [id number] Patient: TELLO JORDAN [id number] [address] [address] [id number] I MR#: [id number] NAME: TELLO JORDAN. ROOM: 47 Date of Procedure: 09/04/2016 Admission Date: 09/04/2016 Surgeon: Nabor Robles M.D. : 1940 Attending Physician: Nabor Robles M.D. Primary Care Physician: Carl Dueñas M.D. OPERATIVE REPORT PREOPERATIVE DIAGNOSES The patient has advanced pancreatic cancer and has been losing weight as a result of very poor oral intake. He has therefore come for elective PEG placement for enteral feeding. PROCEDURES PERFORMED 1. Uncomplicated placement of PEG tube. 2. Upper gastrointestinal endoscopy. POSTOPERATIVE DIAGNOSES There were changes of portal hypertensive gastropathy involving the stomach and the duodenum. A PEG tube was placed without any problem and without any complications. The examination otherwise normal up to third part of duodenum. RECOMMENDATIONS Arrangements are being made for bolus PEG feed at home. The patient will be kept in the hospital today for outpatient observation and ensuring that is pain-free before discharge. SEDATION USED MAC. DESCRIPTION OF PROCEDURE Following detailed explanation of the potential risks and complications of an upper endoscopy and a PEG placement namely perforation, bleeding, and complication related to sedation, the patient was brought to GI lab and the patient was laid in the supine position with head of the bed elevated. Lubricated tip of the Olympus video upper endoscope was passed through the bite-block into the proximal esophagus under direct vision. The entire esophageal mucosa was examined and appeared normal. The scope was then advanced into the gastric cavity and the latter was insufflated. Mucosa of the fundus, body, and antrum was examined. The patient was noted to have changes of portal hypertensive gastropathy in the fundic mucosa. Prepyloric antral area appeared normal. Pylorus was intubated with visualization of normal duodenal bulb and second and third part of the duodenum. Upon withdrawal and retroflexion, incisura, cardia, and greater curve were examined and no additional findings were noted. Using transillumination and finger indentation, a prospective PEG site was identified. The area was cleaned and draped with Betadine. A 1% lidocaine infiltrative anesthesia was given. A small stab incision was Unit #: [id number] #: [id number] Patient: TELLO JORDAN made in the skin. Using Seldinger technique, a guidewire was placed in the gastric cavity and the latter was grasped using a polypectomy snare and brought out through the oral cavity. A 20-Romansh PEG tube was reloaded over the guidewire and brought out through the oral cavity. Appropriate feeding attachments and securing device were applied. The area was cleaned and dressed. Relook endoscopy showed excellent position in the mushroom of the PEG tube. The scope and the accessories were then withdrawn. The patient returned to the recovery area. He tolerated the procedure without any postprocedure complications. Dictated by... Gala Steen/gabriella TD: 09/05/2016 06:06 JOB #: [id number] OPERATIVE REPORT Page 1 of 1 X Nabor Robles MD X PROCEDURE OPERATIVE NOTE
[2016-09-04] MEDS ORDERED: LOVENOX40 MG/0.4 INJ (06:37)
[2016-09-04] MEDS ORDERED: METHADONE HCL10 MG PO (06:38)
[2016-09-04] MEDS ORDERED: MAG-OX 400400 M1 PO (06:38)
[2016-09-04] MEDS ORDERED: OXYCODONE PO (06:39)
[2016-09-04] MEDS ORDERED: PHENERGAN25 M1 PO (06:39)
[2016-09-04] MEDS ORDERED: PROTONIX PO (06:40)
[2016-09-04] MEDS ORDERED: PHENERGAN SUPP25 MG PR (06:40)
[2016-09-04] MEDS ORDERED: SENOKOT S PO (06:41)
[2016-09-04] MEDS ORDERED: ZOFRANODT PO (06:42)
[2016-09-04] MEDS ORDERED: AMIODARONE HCL100 MG PO (12:23)
[2016-09-04] MEDS ORDERED: ASPIRIN EC81 M1 PO (12:24)
[2016-09-04] MEDS ORDERED: CELEXA20 M1 PO (12:24)
[2016-09-04] MEDS ORDERED: FERROUS SU220 MG/54 (12:25)
[2016-09-04] MEDS ORDERED: CREON DR 12,001 EAC1 PO (12:25)
[2016-09-04] MEDS ORDERED: FLORANEX GRANU1 EACH PO (12:26)
[2016-09-04] MEDS ORDERED: FERROUS SU220 MG/53 PO (12:26)
[2016-09-04] MEDS ORDERED: DUONEB (12:34)
[2016-09-04] MEDS ORDERED: ERGOCALCIFEROL (12:35)
[2016-09-04] MEDS ORDERED: DURAGESIC1 EAC2 TD (12:36)
[2016-09-04] MEDS ORDERED: FERROUS SU220 MG/53 (12:41)
[2016-09-04] MEDS ORDERED: ATIVAN0.5 MG DOB (13:16)
[2016-09-05 03:20] LABS: HEMATOCRIT 25.9 % (38.0-50.0); HEMOGLOBIN 8.4 gm/dL (13.0-16.0); MEAN CELL VOLUME 95.8 FL (83-96); MEAN CORPUSCULAR HEMOGLOBIN 31.2 PG (28-34); MEAN CORPUSCULAR HGB CONC 32.5 g/dL (30-36); MEAN PLATELET VOLUME 7.7 FL (6.5-11.5); RED BLOOD COUNT 2.7 X10e (3.90-5.60); RED CELL DISTRIBUTION WIDTH 21.8 % (11.0-15.5); WHITE BLOOD COUNT 4.2 X10e3 (4.0-10.5)
[2016-09-05 03:32] LABS: ALBUMIN SERUM 2.3 g/dL (3.5-5.0); BILIRUBIN,TOTAL 1.2 mg/dL (0.2-2.0); CALCIUM SERUM 7.9 mg/dL (8.4-10.2); GLOM FILT RATE Estimated 73.8 mL/min (>60); PROTEIN TOTAL SERUM 5.7 g/dL (6.0-8.3)
[2016-09-05 03:41] LABS: POTASSIUM 2.4 mmol/L (3.5-5.1)
[2016-09-05 05:26] LABS: URINE SOURCE CLEAN CATCH
[2016-09-05 06:21] LABS: URINE APPEARANCE CLOUDY; URINE BILIRUBIN NEG (NEG); URINE BLOOD NEG (NEG); URINE COLOR YELLOW; URINE GLUCOSE NEG (NEG); URINE KETONE NEG (NEG); URINE LEUKOCYTE ESTERASE NEG (NEG); URINE NITRATE NEG (NEG); URINE PROTEIN NEG (NEG); URINE UROBILINOGEN 0.2 MG/DL (NEG)
[2016-09-06 03:59] LABS: BASOPHIL% 0.3 % (0-2.5); EOSINOPHIL# 0.1 X10e3 (0-0.7); EOSINOPHIL% 3.2 % (0.0-7.0); HEMATOCRIT 25.7 % (38.0-50.0); HEMOGLOBIN 8.3 gm/dL (13.0-16.0); LYMPHOCYTE# 0.7 X10e3 (1.0-3.5); LYMPHOCYTE% 18.6 % (17.0-45.0); MEAN CELL VOLUME 96.3 FL (83-96); MEAN CORPUSCULAR HEMOGLOBIN 30.9 PG (28-34); MEAN CORPUSCULAR HGB CONC 32.1 g/dL (30-36); MEAN PLATELET VOLUME 7.9 FL (6.5-11.5); MONOCYTE# 0.5 X10e3 (0-1.0); MONOCYTE% 14.3 % (3.0-12.0); NEUTROPHIL# 2.4 X10e3 (1.5-7.1); NEUTROPHIL% 63.6 % (40-75); PLATELET COUNT 82 X10e3 (140-420); RED BLOOD COUNT 2.67 X10e (3.90-5.60); WHITE BLOOD COUNT 3.7 X10e3 (4.0-10.5)
[2016-09-06 04:01] LABS: DIFF IND NO
[2016-09-06 04:20] LABS: ALBUMIN SERUM 2.3 g/dL (3.5-5.0); BILIRUBIN,TOTAL 1.3 mg/dL (0.2-2.0); CALCIUM SERUM 8.1 mg/dL (8.4-10.2); GLOM FILT RATE Estimated 73.8 mL/min (>60); PROTEIN TOTAL SERUM 5.6 g/dL (6.0-8.3)
[2016-09-06 04:24] LABS: POTASSIUM 2.7 mmol/L (3.5-5.1)
[2016-09-07 03:07] LABS: HEMATOCRIT 24.5 % (38.0-50.0); MEAN CELL VOLUME 96.4 FL (83-96); MEAN CORPUSCULAR HEMOGLOBIN 31.3 PG (28-34); MEAN CORPUSCULAR HGB CONC 32.4 g/dL (30-36); MEAN PLATELET VOLUME 7.8 FL (6.5-11.5); RED BLOOD COUNT 2.54 X10e (3.90-5.60); WHITE BLOOD COUNT 4.1 X10e3 (4.0-10.5)
[2016-09-07 03:23] LABS: BUN/CREATININE RATIO 8.88; CALCIUM SERUM 7.8 mg/dL (8.4-10.2); CREATININE SERUM 0.9 mg/dL (0.6-1.4); GLOM FILT RATE Estimated 83.8 mL/min (>60); MAGNESIUM 2.2 mg/dL (1.6-3.0); POTASSIUM 3.1 mmol/L (3.5-5.1)
== END 2016-09-07 23:55 | DRG 640 ==
LOC: COPS 06:05 → CPACUOF 08:45 → COPS 08:45 → CPACUOF 09:32 → C4C 16:32 → CPACUOF 16:32 → C4C 09-05 20:00 → CPACUOF 09-05 20:00 → C4C 09-07 23:55
PROVIDERS: Internal Medicine Gastroenterology
PROC: 0DH63UZ Insertion of Feeding Device into Stomach, Percutaneous Approach (ICD-10-PCS; principal; 2016-09-07)
PROC: 0DJ08ZZ Inspection of Upper Intestinal Tract, Via Natural or Artificial Opening Endoscopic (ICD-10-PCS; 2016-09-07)
DX: E43 Unspecified severe protein-calorie malnutrition (principal); K83.1 Obstruction of bile duct; C25.0 Malignant neoplasm of head of pancreas; I48.2 Chronic atrial fibrillation; K76.6 Portal hypertension; I10 Essential (primary) hypertension; E87.6 Hypokalemia; K21.9 Gastro-esophageal reflux disease without esophagitis; Z68.30 Body mass index [BMI] 30.0-30.9, adult; I25.10 Atherosclerotic heart disease of native coronary artery without angina pectoris; K31.89 Other diseases of stomach and duodenum; N40.0 Benign prostatic hyperplasia without lower urinary tract symptoms; Z90.49 Acquired absence of other specified parts of digestive tract; Z66 Do not resuscitate; Z88.0 Allergy status to penicillin; Z88.8 Allergy status to other drugs, medicaments and biological substances
CPT/HCPCS: 80048; 80053; 81003; 83735; 84132; 85025; 85027; J1170; J1956; J2405; J2550; J3010; J3370